=== PATIENT | female | born 1980 | race Caucasian/White ===

== ENCOUNTER 2021-09-16 09:01 | Outpatient (CLI) | payer OTHER, SELFPAY ==
--- NOTE | ~2021-09-16 | US_ITS ---
EXAMINATION: US venous doppler LE DATE: 09/16/2021 10:14 INDICATION: Bleeding from varicose veins of the left lower limb. Venous reflux. TECHNIQUE: Grayscale ultrasound images without and with compression and Doppler ultrasound images of the bilateral lower extremity veins were obtained. COMPARISON: None. FINDINGS: The visualized portions of right common femoral vein, profunda (deep) femoral vein, femoral vein, pop liteal vein, posterior tibial veins, peroneal veins, gastrocnemius vein and greater saphenous vein ou tflow are patent. Right standing venous mapping: reflux seconds duration; vein size. Greater saphenous origin: 0 seconds; 6.9 mm. Greater saphenous proximal thigh:- 0 seconds; 2.9 mm. Greater saphenous mid thigh:------ 1.0 seconds; 6.4 mm. There is a dilated subcutaneous varicose vein arising from the right greater saphenous vein at the di stal thigh which measures 8.1 mm diameter [id number] and 7.0 mm at the knee where there is 3.0 se conds of reflux and at least 3.5 seconds of reflux at the proximal calf. Lesser saphenous proximally:------ 0 seconds; 2.2 mm. Lesser saphenous distally: 2 seconds; 1.8 mm. The visualized portions of left common femoral vein, profunda femoral vein, femoral vein, popliteal v ein, posterior tibial veins, peroneal veins, gastrocnemius vein and greater saphenous vein outflow ar e patent. Left standing venous mapping: reflux seconds duration; vein size. Greater saphenous origin: 0 seconds; 8.3 mm. Greater saphenous proximal thigh:- 0 seconds; 6.0 mm Greater saphenous mid thigh:------ 0 seconds; 2.2 mm. Greater saphenous distal thigh:---- 0 seconds; 2.2 mm. Greater saphenous at knee:-------- 0 seconds; 1.3 mm. Greater saphenous below knee:--- >5 seconds; 2.2 mm. Lesser saphenous proximally:------ >5 seconds; 1.9 mm. Lesser saphenous distally: 0 seconds; 2.7 mm. IMPRESSION: 1. No deep venous thrombosis in either lower limb. 2. >5 second reflux [id number] in the left greater saphenous and lesser saphenous veins. Up to 3. 5 second reflux at a superficial varicose vein at the distal thigh and knee arising from the right gr eater saphenous vein. Reviewed, dictated and finalized at location A. IMPRESSION: 1. No deep venous thrombosis in either lower limb. 2. >5 second reflux [id number] in the left greater saphenous and lesser sap henous veins. Up to 3.5 second reflux at a superficial varicose vein at the dis mike thigh and knee arising from the right greater saphenous vein.
== END 2021-09-16 09:02 | disposition home or self-care (01) ==
PROVIDERS: PCP Nurse Practitioner Family
DX: I87.2 Venous insufficiency (chronic) (peripheral) (principal)
CPT/HCPCS: 93970

== ENCOUNTER 2023-01-13 01:11 | Emergency (ER) | payer OTHER, SELFPAY ==
--- NOTE | ~2023-01-13 | CT_ITS ---
CT of the Abdomen and Pelvis: Indication: Abdominal pain Technique: 2.5 mm axial scans were obtained through the abdomen and pelvis following intravenous adm inistration of 100 cc of Omnipaque 350. Dose reduction technique was used on this scan by utilizing a utomated exposure control and iterative reconstruction technique. The dose-length product (DLP) was 1 509.36 mGy-cm. Findings: Scans through the lung bases are unremarkable. The liver, spleen, pancreas, adrenals and kidneys are within normal limits. Gallbladder is partially distended with a gallstone the gallbladder neck, though no definite gallbladder wall thickening or pe richolecystic inflammatory change identified. No evidence of aortic aneurysm. No lymphadenopathy. No bowel obstruction or bowel wall thickening. There is no evidence to suggest acute appendicitis. Images through the pelvis were performed. Urinary bladder unremarkable. There are probable bilateral cystic adnexal masses, measuring 9 cm in diameter on the left, and 6.3 cm on the right. Probable cyst is small left hydrosalpinx. No ascites evident. Impression: Large bilateral ovarian cysts, measuring approximately 9 cm in diameter on the left, and 6.3 cm on th e right. Consider pelvic ultrasound to further assess for torsion and the nature of the cysts, as cli nically indicated. Gallstones are gallbladder neck with distended gallbladder but no gallbladder wall thickening or dinah cholecystic inflammatory change. If there is clinical concern for acute cholecystitis, then consider HIDA scan for further evaluation. Reviewed, dictated and finalized at [facility]. 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 Consider pelvic ultrasound to further assess for torsion and the nature of the cysts, as clinically indicated. Gallstones are gallbladder neck with distended gallbladder but no gallbladder w all thickening or pericholecystic inflammatory change. If there is clinical con cern for acute cholecystitis, then consider HIDA scan for further evaluation.
[2023-01-13 01:23] VITALS: BP 160/78; PULSE 89; RESP 20; TEMP 37.7; O2SAT 98
[2023-01-13 01:24] VITALS: BP 160/78; PULSE 89; RESP 20; TEMP 37.7; O2SAT 98
--- NOTE | 2023-01-13 01:32 | ED.ABDPAIN ---
HPI - Abdominal Pain General Chief Complaint: Abdominal Pain Stated Complaint: abdominal pain History of Present Illness HPI narrative: This is a 42-year-old female, with no significant past medical history, who presents to the emergency department complaining bilateral pelvic pain for the last 2 days. She describes the pain as sharp, rated 9/10 and equal on both sides. She states the pain radiates towards her genitalia. She denies abnormal vaginal discharge, though says she has had 2 episodes of vaginal bleeding consistent with menstrual cycles this month. She states direct pressure or sitting up aggravates the pain. She has no other complaints at this time. Related Data Allergies Allergy/AdvReac Type Severity Reaction Status Date / Time No Known Allergies Allergy Unverified 07/10/21 12:30 Review of Systems Review of Systems: CONSTITUTIONAL: Denies fever, chills, or sweats. CARDIOVASCULAR: Denies chest pain, palpitations, or edema. RESPIRATORY: Denies cough or dyspnea. GASTROINTESTINAL: Abdominal pain Denies nausea, vomiting, or diarrhea. GENITOURINARY: Denies dysuria or hematuria. SKIN: Denies rash or itching. MUSCULOSKELETAL: Denies back pain, joint pain, or myalgia. NEUROLOGIC: Denies headache, numbness, dizziness, or weakness. PSYCHIATRIC: Denies anxiety or depression. [facility] Surgical History Surgical History History of appendectomy History of Social History Social History Smoking status: Former smoker Alcohol intake: current Alcohol use details: social Substance use: never Substance use type: does not use Living arrangements: with family Additional living arrangements comments: Gender identity (if verbalized by the patient): Female Exam Narrative: GENERAL: Well-appearing, well-nourished, and in no acute distress. HEAD: Normocephalic, atraumatic. EYES: PERRLA and EOMI. CHEST: Clear to auscultation. No respiratory distress. No wheezes rales or rhonchi HEART: Regular rate and rhythm. No murmur heard. Normal peripheral pulses. ABDOMEN: Soft, tender palpation over the periumbilical and in the bilateral lower quadrants without rebound or guarding, nondistended, normal active bowel sounds. no CVA tenderness to palpation EXTREMITIES: Normal range of motion. No edema. SKIN: Warm, dry, no rash. NEURO: No focal deficits. Alert and oriented x3. PSYCH: Normal mood and affect. Course Course Emergency Course: 03:49 - CBC unremarkable. Chemistries demonstrate mild hypocalcemia with calcium of 8.3 but is otherwise unremarkable. UA shows changes consistent with urinary tract infection. STAT Rad interpretation of CT abdomen pelvis shows bilateral ovarian cysts measuring up to 9 x 6.9 cm on the right and 8.8 x 7.6 cm on left. Postoperative changes prior appendectomy. Cholelithiasis. Solid organs are unremarkable in appearance. No free air or intestinal obstruction. My review of the patient's CT also demonstrates what appears to be an inflammatory reaction in the skin of the patient's pannus just above the pubic symphysis. I suspect UTI or this inflammatory reaction as the possible cause of the patient's pain. In the presence of these findings, I have decreased suspicion for ovarian torsion at this time. On re-evaluation, the patient states she feels much improved. She was given an IV dose of antibiotics in the ED. I recommended the patient follow-up with a primary care doctor and an [facility]. Discussed return and emergency precautions including signs/symptoms of acute abdomen and intractable vomiting. The patient voiced understanding and is comfortable with the plan. All questions answered to her satisfaction. Vital Signs Vital signs: Vital Signs Temperature 99.8 F H 01/13/23 01:23 Pulse Rate 89 01/13/23 01:23 Respiratory Rate 20 01/13/23 01:23 Blood Pressure
[2023-01-13] MEDS: MORPHINE SULFATE (*CRX) 4 MG/ML INJ IV PUSH (01:50)
[2023-01-13 02:00] LABS: Basophils Absolute Auto 0.04 K/mm3 (0.00-0.10); Basophils Percent Auto 0.6 % (0.0-1.0); Eosinophils Absolute Auto 0.08 K/mm3 (0.02-0.50); Eosinophils Percent Auto 1.2 % (1.0-6.0); Hematocrit 36.9 % (35.0-49.0); Immature Granulocyte Absolute 0.08 K/mm3 (0.00-0.00); Immature Granulocyte Percent A 1.2 % (0.0-0.0); Lymphocytes Absolute Auto 1.29 K/mm3 (1.10-4.50); Lymphocytes Percent Auto 18.8 % (18.0-42.0); Mean Corpuscular HGB Conc 32.5 g/dL (32.0-36.0); Mean Corpuscular Volume 86.2 fL (78.0-102.0); Mean Platelet Volume 10.4 fl (9.2-11.8); Monocytes Absolute Auto 0.61 K/mm3 (0.10-0.90); Monocytes Percent Auto 8.9 % (2.0-11.0); Neutrophils Absolute Auto 4.8 K/mm3 (1.7-7.2); Neutrophils Percent Auto 69.3 % (50.0-70.0); Platelet Count Result 323 K/mm3 (150-420); Red Blood Count 4.28 M/mm3 (4.20-5.40); Red Cell Distribution Width 13.4 % (11.6-14.4); White Blood Count 6.9 K/mm3 (4.8-10.8)
[2023-01-13 02:05] LABS: Appearance Urine Clear (Clear); Bilirubin Urine Negative (Negative); Blood Urine 3+ (Negative); Color Urine Light Yellow (Yellow); Glucose Urine UA Negative (Negative); Ketones Urine Negative (Negative); Leukocyte Esterase Ur 2+ LEU/UL (Negative); Nitrate Urine Positive (Negative); Protein Urine 1+ (Negative); Specific Grav Ur 1.025 (1.010-1.020); pH Urine 6.5 (5.0-8.0)
[2023-01-13 02:10] LABS: Add Urine Microscopic? YES; Pregnancy On Board Control Positive; RBC Urine >75 /hpf (0-2); Urine Pregnancy Test Negative; WBC Urine 16-20 /hpf (0-3)
[2023-01-13 02:11] LABS: Bacteria Urine 3+ /hpf; Squamous Epithelial Cell Urine Many /hpf (Few)
[2023-01-13 02:14] LABS: Alanine Aminotransferase 29 U/L (14-59); Albumin Level 2.9 g/dL (3.4-5.0); Alkaline Phosphatase 75 U/L (46-116); Anion Gap 5 mmol/L (8-16); Aspartate Amino Transferase 16 U/L (15-37); Bilirubin,Total 0.4 mg/dL (0.00-1.00); Blood Urea Nitrogen 10 mg/dL (7-18); Calcium 8.3 mg/dL (8.5-10.1); Carbon Dioxide 30 mmol/L (21-32); Chloride 103 mmol/L (98-108); Estimated CRCL calculation 139 ml/min; Estimated Glomerular Filt Rate > 60; Glucose 113 mg/dL (70-99); Lipase 35 U/L (16-77); Osmolality Calculated 286 mOsm/kg (285-295); Potassium 3.9 mmol/L (3.5-5.1); Sodium 138 mmol/L (136-145); Total Protein 7.8 g/dL (6.4-8.2)
[2023-01-13 02:35] VITALS: BP 155/71; PULSE 88; RESP 18; O2SAT 98
[2023-01-13] MEDS: PROCHLORPERAZINE EDISYLATE 10 MG/2 ML VIAL IV PUSH (02:53)
[2023-01-13 03:52] VITALS: BP 126/80; PULSE 85; RESP 18; TEMP 37.2; O2SAT 97
--- NOTE | 2023-01-16 13:53 | PC.NURSE ---
Final urine culture report states, Escherichia coli, Patient discharged on cephalexin 500mg, 1 po q12h, per ERP no change needed culture is susceptible.
== END 2023-01-13 04:02 | disposition home or self-care (01) ==
PROVIDERS: Emergency Provider Preventive Medicine Aerospace Medicine
DX: N30.01 Acute cystitis with hematuria (principal); R10.30 Lower abdominal pain, unspecified; Z87.891 Personal history of nicotine dependence
CPT/HCPCS: 36415; 74177; 80053; 81001; 81025; 83690; 85025; 87077; 87086; 87088; 87186; 96365; 96375; 99284; J0696; J0780; J2270; Q9967

== ENCOUNTER 2023-01-29 08:58 | Outpatient (CLI) | payer OTHER, SELFPAY | END 2023-01-29 08:59 | disposition home or self-care (01) | LOC: ANHSURGERY 09:24 | PROVIDERS: PCP Family Medicine; Visit Provider Obstetrics & Gynecology | DX: Z01.818 Encounter for other preprocedural examination (principal); N83.209 Unspecified ovarian cyst, unspecified side | CPT/HCPCS: 36415; 86850; 86900; 86901 ==

== ENCOUNTER 2023-01-30 02:51 | Day surgery (SDC) | payer OTHER, SELFPAY ==
--- NOTE | 2023-01-27 16:32 | P.HP_ITS ---
H&P: HPI History of Present Illness Date/Time: 01/27/23 16:32 Chief Complaint: pelvic pain and ovarian cysts Narrative: the 42-year-old female 2 para 2 admitted for laparoscopy with pelvic pain and discomfort. She has had fertility issues and her pain has been uncomfortable. Risks and benefits of this procedure reviewed including not exclusive of , aspiration pneumonia, bleeding, transfusion, perforation injury to bowel, bladder, ureters, or other internal organs with need for laparotomy. She received the [employer] handout entitled laparoscopy. She had all questions answered. She asked to proceed should be noted that on ultrasound of the left ovary had a simple cyst measuring 8cm in diameter and the right with 5.5cm in diameter [facility] Surgical History Surgical History History of appendectomy History of Social History Social History Smoking status: Former smoker Alcohol intake: current Alcohol use details: social Substance use: never Substance use type: does not use Living arrangements: with family Additional living arrangements comments: Gender identity (if verbalized by the patient): Female Meds Home Medications and Allergies Home Medications Medication Instructions Recorded Confirmed Type cephalexin 500 mg capsule 500 mg PO Q12H 7 days #14 caps 01/13/23 Rx prochlorperazine maleate 10 mg 10 mg PO Q8H PRN nausea and 01/13/23 Rx tablet vomiting #15 tabs Allergies Allergy/AdvReac Type Severity Reaction Status Date / Time No Known Allergies Allergy Verified 01/21/23 07:52 Exam Const: General: cooperative, healthy appearing and comfortable Nutritional Appearance: obese Orientation/consciousness: oriented to person, oriented to place and oriented to time HENMT: Head: normal to inspection Resp: Effort & Inspection: normal respiratory effort Cardio: Rate: regular rate Rhythm: regular rhythm Heart sounds: S1 normal heart sound present and S2 normal heart sound present GI: Inspection: normal to inspection, Pannus present and obesity : External Female Exam: normal external appearance Speculum Exam - Vagina: normal appearance of the vagina Speculum Exam - Cervix: normal appearance of the cervix Bimanual exam- vagina & uterus: Uterine tenderness Bimanual Exam- Adnexa, other: tender Assessment and Plan Assessment and plan (1) Ovarian cyst: Code(s): N83.209 - Unspecified ovarian cyst, unspecified side Status: Acute Plan laparoscopic bilateral ovarian cystectomies with possible cystotomy
[2023-01-28 14:37] VITALS: BMI 61.1
--- NOTE | 2023-01-28 14:49 | PC.NURSE ---
Report to the Outpatient Waiting Room, entrance under the green pavilion located off [facility], at 1100 on 01/30/23. Planned Procedure Time: 1300. Time changes happen often and if your time is changed the preop area will call you the afternoon before. - You and your visitor will be asked to self-screen and do not enter if you have any COVID symptoms. - A mask is optional within the hospital at this time. Patients may have clear liquids (water, carbonated beverages, clear teas, apple juice) until 3 hours prior to surgery with a maximum of 20 ounces. - No food from midnight until time of surgery Take the following medications with a SIP of water the morning of surgery: n/a DO NOT STOP ANY OF YOUR OTHER PRESCRIPTION MEDICATIONS PRIOR TO SURGERY ?EXCEPT THE FOLLOWING Medications to discontinue per physician n/a Date to take last dose n/a Please no make-up, nail [place], hairspray, perfume, deodorant, or body powder the day of surgery. No jewelry (including any body piercings) or valuables the day of surgery, leave them at home. Please take a shower or bath the night before, or the morning of, surgery with an antibacterial soap. Wear comfortable, loose fitting clothing. - Jewelry must be removed prior to entering the operating room. Rings and piercings that are not removed may be cut off. - The hospital will not accept responsibility for valuables. - Please leave all valuables, including medications, at home the day of surgery. If you are going home after surgery, a licensed truck driver must drive you home. - NO public transportation without another adult if you receive anesthesia. - We recommend that an adult stay with you for 24 hours following discharge. - We also recommend that you do not drive, make important decision, drink alcoholic beverages, or take any drugs that were not prescribed by your health care provider for at least 24 hours after your discharge time. Follow any additional instructions given to you from your surgeon. If you or anyone in your household have experienced Covid symptoms in the past week, please notify your surgeon or the nurse liaison at the phone number below for possible testing. Telephone instructions given to patient and asked if any additional questions and then verbalized understanding. Patient advised to call surgeon office or pre surgery nurse liaison [phone] if any additional questions.
[2023-01-30] VITALS (11 sets, daily range): BP systolic 124–155; BP diastolic 72–98; PULSE 59–103; RESP 14–19; TEMP 36.1–36.7; O2SAT 98–100
--- NOTE | 2023-01-30 06:22 | WPDHPUPDATE1 ---
History and Physical Update Update Date/Time: 01/30/23 06:22 History and Physical has been reviewed, including an updated exam of the patient. There are NO changes in the patient's condition. Risks, benefits, and alternatives have been discussed and questions answered. Patient agrees to proceed with procedure.
[2023-01-30] MEDS: ACETAMINOPHEN 500 MG TABLET 1000 MG PO (11:37)
[2023-01-30] MEDS: KETOROLAC 15 MG/ML VIAL (*BKC) IV PUSH (11:38)
[2023-01-30] MEDS: LACTATED RINGERS 1,000 ML 30 ML IV CONT (11:40)
--- NOTE | 2023-01-30 11:52 | WPDANESEPPF ---
Anes - Initial Pre Proc Eval Procedure: Operation Date: 01/30/23 13:00 Proposed Procedures p Laparoscopic Bilateral Ovarian Cystectomy - Jasper Allen MD Date/Time: 01/30/23 11:52 Surgeon: Jasper Allen MD Pre Op Diagnosis: bilateral ovarian cyst, pelvic pain Patient Data Age: 42 Gender: F Height: 1.6 m Weight: 155.3 kg Allergies Allergy/AdvReac Type Severity Reaction Status Date / Time No Known Allergies Allergy Verified 01/30/23 11:18 Home Medications Medication Instructions Recorded Confirmed Type hydrocodone 5 mg-acetaminophen 325 1 tablet PO Q4H PRN pain #20 tabs 01/30/23 Rx mg tablet Patient hx anesthesia problems: none Family hx anesthesia problems: none Results Review: All pre-operative results and documents have been reviewed as part of the pre-operative evaluation. [facility] Surgical History Surgical History History of appendectomy History of Social History Social History Smoking packs per day: 1 Smoking cigarettes per day: 20.0 Years smoked: 10 Smoking pack-years: 10.00 Smoking status: Current every day smoker Tobacco type: cigarettes Second hand tobacco smoke exposure: Yes () Smoking end date: 01/28/14 Alcohol intake: current Alcohol use details: 1-2 drinks 1-2x/month Substance use: never Substance use type: does not use Living arrangements: with family Additional living arrangements comments: Gender identity (if verbalized by the patient): Female Spiritual care concerns: No Anes - Eval Final PreProcedure Day of Procedure 01/30/23 11:52 Patient weight: super morbidly obese Heart: regular rate and rhythm Lungs: decreased breath sounds Airway: Mallampati scale class II Neurological: alert and oriented Last oral intake: >/= 8 hours ASA classification: III Emergent: no Anesthetic plan: proceed Anesthesia type and monitoring: general ETT and standard monitoring Results Review: All pre-operative results and documents have been reviewed as part of the pre-operative evaluation. Informed Consent: The patient's anesthetic plan and its attendant risks and benefits were discussed with the patient/family/POA. Questions were solicited and answers provided to the satisfaction of the patient/family/POA.
--- NOTE | 2023-01-30 14:13 | W.PM.PROC2 ---
Procedure Note - Detailed Date of Procedure 01/30/23 Pre-op Diagnosis bilateral ovarian cyst, pelvic pain Post-op Diagnosis Same Procedure Performed Laparoscopic destruction of bilateral ovarian cysts with extensive lysis of adhesions Surgeon Jasper Allen MD Anesthesia General Indications this is a 42-year-old female with large ovarian cyst and severe pelvic pain Findings large bilateral ovarian cysts with marked amount of the adhesions normal-appearing uterus Description of Procedure patient was prepped draped in normal sterile fashion placed in the dorsal position. Under excellent general anesthesia speculum placed posterior. Anterior lip of the cervix grasped with single-tooth tenaculum Jackson's cannula inserted the cervix and attached to the single-tooth bladder drained of clear urine the weighted speculum was removed. Gloves were changed A supraumbilical incision made the Veress needle passed in the abdomen. Abdomen filled with CO2 gas 15mmmmmercury. The 5mm trocar advanced in the abdomen with the Optiview no injury seen. Patient placed in Trendelenburg and marked amount of adhesions were seen anteriorly from the omentum to the anterior abdominal a right lower quadrant incision made the 5mm trocar advanced under direct visualization assuring injury. A left lower quadrant incision made the 5 trocar advanced under direct visualization assuring injury. Using Endo Clover the omentum was sharply dissected brought off the anterior portion of the cervix to be see pelvis. Large cystic ovaries were noted. The right ovary was opened in linear fashion drained of serosanguineous fluid. The right tube was adherent dissected. The left ovary was enlarged as well and a linear incision made and drained of serosanguineous fluid. Eventually the cul-de-sac could be seen after sharp dissection was undertaken relieving the colon from the left adnexa. irrigation was undertaken until at this point it was felt dangerous to remove the cystic tissue which appeared assuring throughout the procedure and it was felt that it could not be completely removed secondary to the patient's large size and the risks associated with the possible need for open laparotomy. The lower site was removed. The gas removed from the abdomen. The upper sites removed. The incisions closed with 4 Monocryl and glue. The instruments removed from vagina the patient went to recovery in satisfactory condition. All sponge, needle, instrument counts were correct. Immediate complications Estimated Blood Loss 5 Drains No Packing No Pathology None sent Complications No immediate complications Condition Stable Disposition PACU
[2023-01-30] MEDS: fentaNYL CITRATE INJ (*CRX) 100 MCG/2 ML VIAL 25 MCG IV PUSH ×2 (15:48→15:54)
[2023-01-30] MEDS: diphenhydrAMINE HCl INJ 50 MG/ML VIAL 25 MG IV PUSH (16:06)
[2023-01-30] MEDS: oxyCODONE HCL (*CRX) 5 MG TAB IR PO (16:29)
== END 2023-01-30 17:05 | disposition home or self-care (01) ==
PROVIDERS: PCP Family Medicine; Visit Provider Obstetrics & Gynecology
PROC: (CPT 49320; principal; 2023-01-30 13:00)
DX: R10.2 Pelvic and perineal pain (principal); N83.202 Unspecified ovarian cyst, left side; N83.201 Unspecified ovarian cyst, right side; Z87.891 Personal history of nicotine dependence
CPT/HCPCS: 58662; 36415; 86850; 86900; 86901; A9270; J0330; J1100; J1200; J1885; J2250; J2405; J2704; J3010; J7030; J7120

== ENCOUNTER 2023-03-02 13:27 | Outpatient (CLI) | payer OTHER, SELFPAY ==
--- NOTE | ~2023-03-02 | MM_ITS ---
EXAMINATION: MM screening bradly BI w kd HISTORY: Screening TECHNIQUE: Craniocaudal and mediolateral oblique 3-D tomosynthesis images were obtained and synthetic 2-D images were generated. CAD analysis was submitted and interpreted. COMPARISON: No prior mammogram is available for comparison at this institution. BREAST PARENCHYMAL COMPOSITION: Breast composition is almost entirely fatty FINDINGS: There is a mass in the upper outer quadrant of the right breast, middle third. There is no mammographic evidence for malignancy in the left breast. IMPRESSION: 1. Mass upper outer quadrant of the right breast, middle third. 2. Additional mammographic views and possible breast ultrasound are recommended. BI-RADS Category 0: Incomplete: Needs additional imaging evaluation. Reviewed, dictated and finalized at location A. CAD IMPRESSION: 1. Mass upper outer quadrant of the right breast, middle third. 2. Additional mammographic views and possible breast ultrasound are recommended . BI-RADS Category 0: Incomplete: Needs additional imaging evaluation.
== END 2023-03-02 13:28 | disposition home or self-care (01) ==
PROVIDERS: PCP Family Medicine; Visit Provider Obstetrics & Gynecology
DX: Z12.31 Encounter for screening mammogram for malignant neoplasm of breast (principal); R92.8 Other abnormal and inconclusive findings on diagnostic imaging of breast
CPT/HCPCS: 77063; 77067

== ENCOUNTER 2023-03-06 08:50 | Outpatient (CLI) | payer OTHER, SELFPAY ==
--- NOTE | ~2023-03-06 | MMUS_ITS ---
EXAMINATION: MM diagnostic bradly RT w kd, US breast RT limited HISTORY: Right breast mass seen on screening mammogram. TECHNIQUE: Additional 3-D tomosynthesis images of the right breast were performed and synthetic 2-D i mages were generated. CAD analysis was submitted and interpreted. High resolution Limited right breas t ultrasound was performed. COMPARISON: No prior studies for comparison. BREAST PARENCHYMAL COMPOSITION: Breast composed of scattered areas of fibroglandular density FINDINGS: MAMMOGRAPHIC FINDINGS: There is a mass in the upper outer quadrant of the right breast, middle third. There are no suspiciou s calcifications or architectural distortion. ULTRASOUND: Limited right breast ultrasound: At 10:00, 11 cm from the nipple there is an oval heterogeneous hypoe choic 9 mm mass without posterior features or internal vascularity which corresponds to the mammograp hic finding. IMPRESSION: 1. Complex 9 mm right breast mass at 10:00, 11 cm from the nipple. 2. Ultrasound-guided right breast biopsy recommended. BI-RADS CATEGORY 4-SUSPICIOUS ABNORMALITY RECOMMENDATION: Ultrasound-guided right breast biopsy recommended. Reviewed, dictated and finalized at location A. 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 Complex 9 mm right breast mass at 10:00, 11 cm from the nipple. 2. Ultrasound-guided right breast biopsy recommended. BI-RADS CATEGORY 4-SUSPICIOUS ABNORMALITY RECOMMENDATION: Ultrasound-guided right breast biopsy recommended.
== END 2023-03-06 08:51 | disposition home or self-care (01) ==
PROVIDERS: PCP Family Medicine; Visit Provider Obstetrics & Gynecology
DX: R92.8 Other abnormal and inconclusive findings on diagnostic imaging of breast (principal); N63.10 Unspecified lump in the right breast, unspecified quadrant
CPT/HCPCS: 76642; 77061; 77065; G0279

== ENCOUNTER 2023-04-01 09:04 | Outpatient (CLI) | payer OTHER, SELFPAY ==
--- NOTE | ~2023-04-01 | US_ITS ---
EXAMINATION: US breast RT limited HISTORY: Patient presents for ultrasound-guided biopsy of a right breast mass at the 10:00 location. TECHNIQUE: Limited right breast ultrasound was performed. FINDINGS: With real-time scanning, a 7 mm x 5 mm oval, circumscribed, parallel, hypoechoic mass is se en at the 10:00 location, 11 cm from the nipple. This appears to have a central echogenic component c omment suggestive of a lymph node. This was discussed with the patient and a course of six-month foll ow-up was agreed upon. IMPRESSION: Probably benign right breast mass. Follow-up right diagnostic mammogram and right breast ultrasound i n six months are recommended. BI-RADS category 3, probably benign findings. Reviewed, dictated and finalized at location A. ID GEAR TESTER IMPRESSION: Probably benign right breast mass. Follow-up right diagnostic mammogram and rig ht breast ultrasound in six months are recommended. BI-RADS category 3, probably benign findings.
== END 2023-04-01 09:05 | disposition home or self-care (01) ==
PROVIDERS: PCP Family Medicine; Visit Provider Surgery
DX: N63.10 Unspecified lump in the right breast, unspecified quadrant (principal); R92.8 Other abnormal and inconclusive findings on diagnostic imaging of breast
CPT/HCPCS: 76642

== ENCOUNTER 2023-09-15 10:33 | Outpatient (CLI) | payer OTHER, SELFPAY ==
[2023-09-15 11:28] LABS: Basophils Percent Auto 0.6 % (0.2-1.2); Eosinophils Absolute Auto 0.1 K/mm3 (0-0.3); Eosinophils Percent Auto 1.6 % (0-4.4); Hematocrit 37.4 % (37.0-47.0); Hemoglobin 12.4 g/dL (12.0-15.0); Immature Granulocyte Absolute 0.04 K/mm3 (0.00-0.031); Immature Granulocyte Percent A 0.6 % (0-0.5); Lymphocytes Absolute Auto 1.71 K/mm3 (0.9-3.2); Lymphocytes Percent Auto 24.2 % (18.3-44.2); Mean Corpuscular HGB Conc 33.2 g/dl (32-36); Mean Corpuscular Hemoglobin 28.8 pg (26-34); Mean Corpuscular Volume 86.8 fl (80-100); Mean Platelet Volume 10.9 fl (7.4-10.4); Monocytes Absolute Auto 0.5 K/mm3 (0.1-0.6); Monocytes Percent Auto 7.3 % (2.6-8.5); Neutrophils Absolute Auto 4.7 K/mm3 (1.3-6.7); Neutrophils Percent Auto 65.7 % (45.5-73.1); Platelet Count Result 324 k/mm3 (150-375); Red Blood Count 4.31 M/mm3 (4.2-5.4); Red Cell Distribution Width 13.7 % (11.5-14.5); White Blood Count 7.1 K/mm3 (4.5-10.0)
== END 2023-09-15 10:34 | disposition home or self-care (01) ==
LOC: ANHSURGERY 10:39
PROVIDERS: PCP Family Medicine; Visit Provider Obstetrics & Gynecology
DX: Z01.818 Encounter for other preprocedural examination (principal); N92.6 Irregular menstruation, unspecified; N83.209 Unspecified ovarian cyst, unspecified side
CPT/HCPCS: 36415; 85025; 86850; 86900; 86901

== ENCOUNTER 2023-09-18 00:14 | Day surgery (SDC) | payer OTHER, SELFPAY ==
[2023-09-14 13:02] VITALS: BMI 58.6
--- NOTE | 2023-09-14 13:09 | PC.NURSE ---
Report to the Outpatient Waiting Room, entrance under the green pavilion located off [facility], at time _0930_ on date _[id number]_. Planned Procedure Time: _1130_. Time changes happen often and if your time is changed the preop area will call you the afternoon before. - You and your visitor will be asked to self-screen and do not enter if you have any COVID symptoms. - A mask is optional within the hospital at this time. Patients may have clear liquids (water, carbonated beverages, clear teas, apple juice) until 3 hours prior to surgery with a maximum of 20 ounces. - No food from midnight until time of surgery Take the following medications with a SIP of water the morning of surgery: ___None DO NOT STOP ANY OF YOUR OTHER PRESCRIPTION MEDICATIONS PRIOR TO SURGERY ?EXCEPT THE FOLLOWING Medications to discontinue per physician None Date to take last dose Please no make-up, nail ethiopian, hairspray, perfume, deodorant, or body powder the day of surgery. No jewelry (including any body piercings) or valuables the day of surgery, leave them at home. Please take a shower or bath the night before, or the morning of, surgery with an antibacterial soap. Wear comfortable, loose fitting clothing. - Jewelry must be removed prior to entering the operating room. Rings and piercings that are not removed may be cut off. - The hospital will not accept responsibility for valuables. - Please leave all valuables, including medications, at home the day of surgery. If you are going home after surgery, a licensed cdl b driver must drive you home. - NO public transportation without another adult if you receive anesthesia. - We recommend that an adult stay with you for 24 hours following discharge. - We also recommend that you do not drive, make important decision, drink alcoholic beverages, or take any drugs that were not prescribed by your health care provider for at least 24 hours after your discharge time. Follow any additional instructions given to you from your surgeon. If you or anyone in your household have experienced Covid symptoms in the past week, please notify your surgeon or the nurse liaison at the phone number below for possible testing. Telephone instructions given to __Randi___and asked if any additional questions and then verbalized understanding. Patient advised to call surgeon office or pre surgery nurse liaison [phone] if any additional questions.
--- NOTE | 2023-09-16 06:43 | PM.IMHP ---
H&P: HPI History of Present Illness Date/Time: 09/16/23 06:43 Chief Complaint: PELVIC PAIN AND EXCESSIVE HEAVY BLEEDING Narrative: This is a 43-year-old female 2 para 2 admitted for robotic total vaginal hysterectomy bilateral salpingectomy with bilateral oophorectomy. She has bilateral ovarian cyst and enlarged uterus. She bleeds heavily and asked to have complete removal of her pelvic organs. She is young at 42 understands removal of the ovaries have physiologic and psychologic changes. She was definitive in her desire for removal of both despite consultation. Risks and benefits reviewed including but not exclusive of , aspiration pneumonia, bleeding, transfusion, perforation injury to bowel, bladder, ureters, or other internal organs with the need for open laparotomy. She received the [employer] handout entitled hysterectomy as well as de Christa handout. She had all questions answered. She asked to proceed PMFSH Surgical History Surgical History History of appendectomy History of Social History Social History Smoking packs per day: 1 Smoking cigarettes per day: 20.0 Years smoked: 15 Smoking pack-years: 15.00 Smoking status: Former smoker Tobacco type: cigarettes Second hand tobacco smoke exposure: Yes () Smoking end date: 12/16/13 Alcohol intake: current Alcohol use details: 1-2 drinks 1-2x/month Substance use: never Substance use type: does not use Do You Feel Safe in your Home?: Yes Lack of Transportation: No Lack of Food: Never True Current Housing: I Have Housing Concerned About Future Housing: No Difficulty Paying Gas/Electric Bills: No Difficulty Paying for Meds: No Currently Unemployed: No Education: High School Diploma/GED Difficulty w/ Childcare or Family Care: No Living arrangements: with family Additional living arrangements comments: Gender identity (if verbalized by the patient): Female Spiritual care concerns: No Meds Home Medications and Allergies Home Medications Medication Instructions Recorded Confirmed Type No Home Medications 09/14/23 09/14/23 History Allergies Allergy/AdvReac Type Severity Reaction Status Date / Time ondansetron [From Zofran] Allergy Severe Rash, Verified 09/14/23 13:01 SHORTNESS OF BREATH. Exam Const: General: cooperative and comfortable Nutritional Appearance: obese Orientation/consciousness: oriented to person, oriented to place and oriented to time Resp: Effort & Inspection: normal respiratory effort Cardio: Rate: regular rate Rhythm: regular rhythm Heart sounds: S1 normal heart sound present and S2 normal heart sound present GI: Inspection: normal to inspection and obesity GI Palp: Yes abdominal tenderness : External Female Exam: normal external appearance Speculum Exam - Vagina: normal appearance of the vagina Speculum Exam - Cervix: normal appearance of the cervix Bimanual exam- vagina & uterus: enlarged and Uterine tenderness Bimanual Exam- Adnexa, other: tender bilaterally Assessment and Plan Assessment and plan (1) Pelvic pain: Code(s): R10.2 - Pelvic and perineal pain Status: Acute (2) Enlarged uterus: Code(s): N85.2 - Hypertrophy of uterus Status: Acute (3) Ovarian cyst: Code(s): N83.209 - Unspecified ovarian cyst, unspecified side Status: Acute (4) Obesity, morbid, BMI 50 or higher: Code(s): E66.01 - Morbid (severe) obesity due to excess calories Status: Acute Assessment and Plan: Proceed with robotic total vaginal hysterectomy and bilateral salpingo-oophorectomy
[2023-09-18] VITALS (12 sets, daily range): BP systolic 148–168; BP diastolic 76–96; PULSE 73–96; RESP 15–20; TEMP 36.2–36.9; O2SAT 97–100
--- NOTE | 2023-09-18 05:21 | WPDHPUPDATE1 ---
History and Physical Update Update Date/Time: 09/18/23 05:21 History and Physical has been reviewed, including an updated exam of the patient. There are NO changes in the patient's condition. Risks, benefits, and alternatives have been discussed and questions answered. Patient agrees to proceed with procedure.
[2023-09-18] MEDS: ACETAMINOPHEN 500 MG TABLET 1000 MG PO (09:56)
[2023-09-18] MEDS: KETOROLAC 15 MG/ML VIAL (*BKC) IV PUSH (09:56)
[2023-09-18] MEDS: LACTATED RINGERS 1,000 ML 30 ML IV CONT ×2 (10:00→14:48)
[2023-09-18 10:09] LABS: BEDSIDEPREGUCG Negative
[2023-09-18] MEDS: SCOPOLAMINE 1 MG PATCH 1 PATCH TRANSDERM (10:13)
--- NOTE | 2023-09-18 10:14 | WPDANESEPPF ---
Anes - Initial Pre Proc Eval Procedure: Operation Date: 09/18/23 11:30 Proposed Procedures p Robotic Assisted Total Vaginal Hysterectomy with Bilateral Salpingo-oophorectomy - Jasper Allen MD Date/Time: 09/18/23 10:14 Surgeon: Jasper Allen MD Pre Op Diagnosis: Severe Pelvic Pain, Irg Bleeding Patient Data Age: 43 Gender: F Height: 1.6 m Weight: 155 kg Last Vital Signs Temp 36.6 C 09/18/23 09:38 Pulse 87 09/18/23 09:38 Resp 18 09/18/23 09:38 BP 148/96 H 09/18/23 09:38 Pulse Ox 100 09/18/23 09:38 O2 Del Method Room Air 09/18/23 09:38 Allergies Allergy/AdvReac Type Severity Reaction Status Date / Time ondansetron [From Zofran] Allergy Severe Rash, Verified 09/18/23 10:06 SHORTNESS OF BREATH. Home Medications Medication Instructions Recorded Confirmed Type hydrocodone 5 mg-acetaminophen 325 1 tablet PO Q4H PRN pain #30 tabs 09/18/23 Rx mg tablet Laboratory Tests 09/18/23 10:06 POC Urine HCG, Qual Negative POC Ur Preg QC Yes Patient hx anesthesia problems: none Family hx anesthesia problems: none Results Review: All pre-operative results and documents have been reviewed as part of the pre-operative evaluation. [facility] Past Medical History Medical History Morbid obesity Surgical History Surgical History History of appendectomy History of Social History Social History Smoking packs per day: 1 Smoking cigarettes per day: 20.0 Years smoked: 15 Smoking pack-years: 15.00 Smoking status: Former smoker Tobacco type: cigarettes Second hand tobacco smoke exposure: Yes () Smoking end date: 12/16/13 Alcohol intake: current Alcohol use details: 1-2 drinks 1-2x/month Substance use: never Substance use type: does not use Do You Feel Safe in your Home?: Yes Lack of Transportation: No Lack of Food: Never True Current Housing: I Have Housing Concerned About Future Housing: No Difficulty Paying Gas/Electric Bills: No Difficulty Paying for Meds: No Currently Unemployed: No Education: High School Diploma/GED Difficulty w/ Childcare or Family Care: No Living arrangements: with family Additional living arrangements comments: Gender identity (if verbalized by the patient): Female Spiritual care concerns: No Anes - Eval Final PreProcedure Day of Procedure 09/18/23 10:14 Patient weight: morbidly obese Heart: regular rate and rhythm Lungs: clear to auscultation Airway: Mallampati scale class II Neurological: alert and oriented Last oral intake: >/= 8 hours ASA classification: III Emergent: no Anesthetic plan: proceed Anesthesia type and monitoring: general ETT and standard monitoring Results Review: All pre-operative results and documents have been reviewed as part of the pre-operative evaluation. Informed Consent: The patient's anesthetic plan and its attendant risks and benefits were discussed with the patient/family/POA. Questions were solicited and answers provided to the satisfaction of the patient/family/POA.
[2023-09-18] MEDS: ceFAZolin 3 GM/D5W 100 ML 100 ML IVPB (11:09)
--- NOTE | 2023-09-18 14:12 | W.PM.PROC2 ---
Procedure Note - Detailed Date of Procedure 09/18/23 Pre-op Diagnosis Severe Pelvic Pain, Irg Bleeding Post-op Diagnosis Other (Severe pelvic pain/ irregular bleeding/ bilateral ovarian cysts. Extensive adhesions) Procedure Performed robotic total vaginal hysterectomy and bilateral salpingo-oophorectomy with extensive lysis of adhesions Surgeon Jasper Allen MD Anesthesia General Indications 43-year-old female with utero ovarian cyst as well as excessive heavy bleeding Findings huge bilateral ovarian cyst benign in nature and appeared possibly to the endometriomas. Adhesions throughout the pelvis. The enlarged uterus. Description of Procedure Patient was prepped and draped in the normal sterile fashion placed in dorsal lithotomy position. Under excellent general trach anesthesia weighted speculum placed in the posterior fornix vagina. Anterior lip of cervix grasped with single-tooth neck tenaculum. The uterus sounded to 10cm. Serial dilatation with fragmented dilators performed followed by passage of the 8 KALYANI and the 3. Cold cup. Next the 16 Thai catheter was placed in bladder and bladder drained of clear urine. Weighted speculum was gloves were changed. Supraumbilical incision made the Veress needle passed in the abdomen. Abdomen filled with CO2 gas 15 was mercury. The 8mm trocar advanced in the abdomen. Downside visualized no seen. Patient placed in Trendelenburg left lateral quadrant incisions made. 8Mm trocar advanced visualization. Right upper quadrant incision made 8mm advanced visualization assuring. Multiple adhesions were seen and these were sharply dissected until visualization the uterus could be seen. The robot was docked. Attention was turned to the console. Ovarian cysts were large and tangled throughout. Were then 900cc was withdrawn from the left ovary complex and more 400 from the right. The Saphris size of the ovaries visualization. The ovary was markedly adherent on the left colon sharp dissection was used to tease this was sharply dissected away from the colon. This was repeated on opposite side in the same minute face-fashion. The round ligament right was grasped, burned, cut and anterior bladder flap was formed by sharply dissecting the peritoneum reflecting this caudally away the cervix uterus the opposite round was clamped burned, cut. The infundibulopelvic structure was quite difficult to discern both sides the left and followed resecting ovary from the left lateral sidewall and was cleared this was clamped burned, previous this was performed similar fashion on right infundibulopelvic structure clamped burned cut brought to the level previously cut round. Cardinal broad ligaments on was skeletonized clamping burning cutting and bringing this down to vessels these were large tortuous and numerous nature individually clamped. A similar fashion around the cardinal broad ligaments were serially skeletonized clamping burning cutting until the uterine vessels could be seen right these were markedly enlarged and multifocal. Blanching the uterus was noted. The uterus ovaries tubes removed through the vagina. The vagina then closed with continuous running V lock from lateral edge to lateral edge back to the midline. Irrigation undertaken until clear and the surface areas uterus treated with [place] term the robot was undocked. The gas removed the abdomen. The trocars removed and the incisions closed with 4 the patient was awakened went to come in satisfactory condition. All sponge, needle, instrument counts were correct. There were no immediate complications noted Estimated Blood Loss 450 Drains No Packing No Pathology Yes Complications No immediate complications Condition Stable Disposition PACU
--- NOTE | 2023-09-18 14:19 | PM.DS ---
DS: Admitting Diagnosis Discharge Date 09/19/2023 Admitting Diagnosis pelvic pain and bilateral ovarian cysts DS: Discharge Diagnosis Discharge Diagnosis (1) Enlarged uterus: Code(s): N85.2 - Hypertrophy of uterus Status: Acute (2) Pelvic pain: Code(s): R10.2 - Pelvic and perineal pain Status: Acute DS: Summary Hospital Course Reason for hospitalization: patient was admitted for robotic hysterectomy bilateral salpingo-oophorectomy Hospital Course: patient's hospital course was difficult during the procedure and she extensive lysis of adhesions. She remained afebrile. She was up, voiding without difficulty, eating regular diet, ambulating, generally without complaints. Time Spent with Patient Time attestation: Total time spent providing and/or coordinating discharge services: Exam Const: General: cooperative, healthy appearing and comfortable Nutritional Appearance: obese Chest: Chest palpation & inspection: normal inspection of the chest Resp: Effort & Inspection: normal respiratory effort Cardio: Rate: regular rate Rhythm: regular rhythm Heart sounds: S1 normal heart sound present and S2 normal heart sound present GI: Inspection: normal to inspection and incision ( To clean drained) DS: Data Data Completed and Pending Pending studies at discharge: Pending at discharge 09/18/23 14:07 Surgical [PTH] Routine Labs on day of discharge: Labs from last 24 hours 09/18/23 10:06 POC Urine HCG, Qual Negative POC Ur Preg QC Yes Discharge Plan Discharge Patient Disposition: Home, Self-Care Stand Alone Forms: General Discharge Instructions Follow-up/Referrals: Jasper Nieto MD [Physician] - Discharge Medications: New hydrocodone-acetaminophen 5-325 mg tablet 1 tablet PO Q4H PRN (Reason: pain) Qty: 30 0RF estradiol 2 mg tablet 2 mg PO DAILY 21 Days Qty: 21 0RF Rx Instructions: off 1 week; repeat cycle
[2023-09-18] MEDS: ONDANSETRON INJ 4 MG/2 ML VIAL IV PUSH (14:51)
[2023-09-18] MEDS: diphenhydrAMINE HCl INJ 50 MG/ML VIAL 25 MG IV PUSH (15:02)
[2023-09-18] MEDS: PROMETHAZINE HCL 25 MG/ML AMPUL 12.5 MG IV PUSH ×2 (15:31→19:37)
--- NOTE | 2023-09-18 17:00 | PC.NURSE ---
Admission from OR 1616 Report received from 1600
--- NOTE | 2023-09-18 17:10 | PC.NURSE ---
RN monitor vitals RN wasn't able to give pt her meds that were scheduled at 1700 due to being so drowsy and sleepy. Pt was too tired to open take the medication at this time.
[2023-09-18] MEDS: DEXTROSE 5%/LACTATED RINGERS 1,000 ML 125 ML IV CONT (18:12)
[2023-09-18] MEDS: DOCUSATE SODIUM 100 MG CAPSULE PO (19:35)
[2023-09-18] MEDS: SIMETHICONE 80 MG TAB.CHEW PO (19:36)
[2023-09-18] MEDS: HYDROcodone/acetaminophen (*CRX) 5-325 MG TABLET 1 TAB PO (19:36)
[2023-09-19] VITALS: BP 130/70; PULSE 95; RESP 18; TEMP 36.6; O2SAT 98
[2023-09-19] MEDS: KETOROLAC 30 MG/ML VIAL (*BKC) IV PUSH (00:24)
[2023-09-19] MEDS: DEXTROSE 5%/LACTATED RINGERS 1,000 ML 125 ML IV CONT (04:59)
[2023-09-19 05:28] LABS: Basophils Percent Auto 0.2 % (0.2-1.2); Hematocrit 31.8 % (37.0-47.0); Hemoglobin 10.3 g/dL (12.0-15.0); Immature Granulocyte Absolute 0.04 K/mm3 (0.00-0.031); Immature Granulocyte Percent A 0.4 % (0-0.5); Lymphocytes Absolute Auto 1.21 K/mm3 (0.9-3.2); Lymphocytes Percent Auto 10.8 % (18.3-44.2); Mean Corpuscular HGB Conc 32.4 g/dl (32-36); Mean Corpuscular Hemoglobin 28.1 pg (26-34); Mean Corpuscular Volume 86.6 fl (80-100); Mean Platelet Volume 10.9 fl (7.4-10.4); Monocytes Absolute Auto 0.8 K/mm3 (0.1-0.6); Monocytes Percent Auto 7.3 % (2.6-8.5); Neutrophils Absolute Auto 9.1 K/mm3 (1.3-6.7); Neutrophils Percent Auto 81.3 % (45.5-73.1); Platelet Count Result 306 k/mm3 (150-375); Red Blood Count 3.67 M/mm3 (4.2-5.4); Red Cell Distribution Width 13.9 % (11.5-14.5); White Blood Count 11.2 K/mm3 (4.5-10.0)
[2023-09-19 05:51] VITALS: BP 135/69; PULSE 71; RESP 20; TEMP 36.3; O2SAT 100
--- NOTE | 2023-09-19 07:29 | PM.GYNPNOP ---
COMPOSITION TEACHER - A/P Postoperative Procedures: Procedures Operation Date: 09/18/23 11:30 Actual Procedure Side Surgeon p Robotic Assisted Total Vaginal Hysterectomy with Bilateral Salpingo-oophorectomy, extensive lysis of adhesions Bilateral Jasper Allen MD Postoperative day: 1 Postoperative status: doing well Postoperative plan: routine post-op care, see orders, ambulate, advance diet, voiding trials and discharge Time Spent With Patient Time: Total time spent is greater than 50% in coordination of care (as documented) at patient's floor/unit and/or counseling patient: Time with patient: less than 15 minutes COMPOSITION TEACHER- PN:Subj Post-Op Subjective Date/time seen: 09/19/23 07:29 Subjective: patient has no complaints, patient desires discharge, pain is well controlled and patient is tolerating oral intake Exam Const: General: cooperative, healthy appearing and comfortable Orientation/consciousness: oriented to person, oriented to place and oriented to time HENMT: Head: normal to inspection Resp: Effort & Inspection: normal respiratory effort Cardio: Rate: regular rate Rhythm: regular rhythm Heart sounds: S1 normal heart sound present and S2 normal heart sound present GI: Inspection: normal to inspection and incision (cdi) COMPOSITION TEACHER - PN: Obj Data Vital Signs Vital Signs: Vital Signs - 24 hr 09/18/23 09:38 09/18/23 14:43 09/18/23 15:00 Temperature 97.8 F 97.2 F L Pulse Rate 87 96 79 Respiratory Rate 18 15 16 Blood Pressure 148/96 H 168/84 H 161/92 H Pulse Oximetry 100 100 100 Oxygen Delivery Room Air Simple Face Mask Room Air Oxygen Flow Rate 8 09/18/23 15:15 09/18/23 15:30 09/18/23 15:45 Temperature Pulse Rate 78 85 73 Respiratory Rate 18 18 20 Blood Pressure 168/93 H 155/79 H 153/91 H Pulse Oximetry 100 100 99 Oxygen Delivery Room Air Room Air Room Air Oxygen Flow Rate 09/18/23 16:00 09/18/23 16:15 09/18/23 17:22 Temperature 97.9 F Pulse Rate 78 78 Respiratory Rate 18 18 Blood Pressure 155/94 H 158/80 H Pulse Oximetry 98 100 Oxygen Delivery Room Air Room Air Oxygen Flow Rate 09/18/23 16:30 09/18/23 17:00 09/18/23 18:00 Temperature 97.5 F L 98.0 F 97.7 F Pulse Rate 82 80 82 Respiratory Rate 18 17 17 Blood Pressure 160/78 H 156/76 H 157/76 H Pulse Oximetry 100 99 100 Oxygen Delivery Oxygen Flow Rate 09/18/23 20:42 09/18/23 23:15 09/19/23 00:00 Temperature 98.4 F 97.9 F Pulse Rate 74 95 Respiratory Rate 20 18 Blood Pressure 154/79 H 130/70 Pulse Oximetry 97 98 Oxygen Delivery Room Air Oxygen Flow Rate 09/19/23 05:51 Temperature 97.3 F L Pulse Rate 71 Respiratory Rate 20 Blood Pressure 135/69 Pulse Oximetry 100 Oxygen Delivery Oxygen Flow Rate Intake/Output Intake/Output: Intake & Output 09/16/23 09/17/23 09/18/23 09/19/23 23:59 23:59 23:59 23:59 Intake Total 700 1720 Output Total 280 1600 Balance 420 120 Meds/Results Medications: Active Medications Generic Name Dose Route Start Last Admin Trade Name Freq PRN Reason Stop Dose Admin Hydrocodone Bitart/Acetaminophen 1 tab 09/18/23 16:06 09/18/23 19:36 Hydrocodone/Acetaminophen (*Crx) 5-325 Mg Tablet PO 1 tab Q3H PRN Administration Pain Rated 5 or Less Hydrocodone Bitart/Acetaminophen 1 tab 09/18/23 16:06 Hydrocodone/Acetaminophen (*Crx) 10-325 Mg Tablet PO Q3H PRN Pain Rated 6 or Greater Docusate Sodium 100 mg 09/18/23 17:00 09/18/23 19:35 Docusate Sodium 100 Mg Capsule PO 100 mg BID ANIKA Administration Enoxaparin Sodium 40 mg 09/19/23 09:00 Enoxaparin 40 Mg/0.4 Ml Syringe SUB-Q DAILY ANIKA Dextrose/Lactated Ringer's 1,000 mls @ 125 mls/hr 09/18/23 16:06 09/19/23 04:59 Dextrose 5%/Lactated Ringers IV CONT 125 mls/hr .Q8H ANIKA Administration Ibuprofen 600 mg 09/18/23 16:06 Ibuprofen 600 Mg Tablet PO Q6H PRN Cramping Ketorolac Tromethamine 30 mg 09/18/23 16:06 09/19/23 00:24 Ket
[2023-09-19 08:00] VITALS: BP 129/64; PULSE 80; RESP 16; TEMP 36.1; O2SAT 100
[2023-09-19] MEDS: HYDROcodone/acetaminophen (*CRX) 10-325 MG TABLET 1 TAB PO (08:43)
[2023-09-19] MEDS: ENOXAPARIN 40 MG/0.4 ML SYRINGE SUB-Q (08:43)
[2023-09-19] MEDS: SIMETHICONE 80 MG TAB.CHEW PO (08:43)
[2023-09-19] MEDS: DOCUSATE SODIUM 100 MG CAPSULE PO (08:43)
== END 2023-09-19 11:28 | disposition home or self-care (01) ==
LOC: ANHSURGERY 09:20 → ANH3MEDSUR 16:07
PROVIDERS: PCP Family Medicine; Visit Provider Obstetrics & Gynecology
PROC: (CPT 58552; principal; 2023-09-18 11:30)
DX: N80.123 Deep endometriosis of bilateral ovaries (principal); N73.6 Female pelvic peritoneal adhesions (postinfective); N80.03 Adenomyosis of the uterus; N80.203 Endometriosis of bilateral fallopian tubes, unspecified depth; N93.9 Abnormal uterine and vaginal bleeding, unspecified; Z87.891 Personal history of nicotine dependence; E66.01 Morbid (severe) obesity due to excess calories; Z68.44 Body mass index [BMI] 60.0-69.9, adult
CPT/HCPCS: 58552; S2900; 36415; 85025; 86850; 86900; 86901; 88307; A9270; J0690; J1100; J1200; J1650; J1885; J2250; J2405; J2550; J2704; J3010; J7030; J7120; J7121

== ENCOUNTER 2023-10-01 08:50 | Outpatient (CLI) | payer OTHER, SELFPAY ==
--- NOTE | ~2023-10-01 | US_ITS ---
US breast RT limited INDICATION: Follow-up right breast mass TECHNIQUE: Dedicated Limited right breast ultrasound COMPARISON: 04/01/2023 BREAST DENSITY: [ Not dense: There are scattered areas of fibroglandular density. ] FINDINGS: The right breast is/are composed of normal heterogeneous echotexture without focal solid or cystic mass. IMPRESSION: 1: Normal limited right breast ultrasound. Recommend correlation with diagnostic mammogram. BI-RADS CATEGORY 0 - INCOMPLETE STUDY, NEED ADDITIONAL IMAGING EVALUATION. Reviewed, dictated and finalized at location B. IMPRESSION: 1: Normal limited right breast ultrasound. Recommend correlation with diagnosti c mammogram. BI-RADS CATEGORY 0 - INCOMPLETE STUDY, NEED ADDITIONAL IMAGING EVALUATION.
== END 2023-10-01 08:51 | disposition home or self-care (01) ==
LOC: CHSIMG 08:52
PROVIDERS: PCP Family Medicine; Visit Provider Surgery
DX: N63.10 Unspecified lump in the right breast, unspecified quadrant (principal); R92.8 Other abnormal and inconclusive findings on diagnostic imaging of breast
CPT/HCPCS: 76642

== ENCOUNTER 2023-10-02 08:58 | Outpatient (CLI) | payer OTHER, SELFPAY ==
--- NOTE | ~2023-10-02 | MM_ITS ---
EXAMINATION: MM diagnostic bradly RT w kd HISTORY: Follow-up right breast mass. No abnormality seen on ultrasound. TECHNIQUE: Additional 3-D tomosynthesis images of the right breast were performed and synthetic 2-D i mages were generated. CAD analysis was submitted and interpreted. COMPARISON: Comparison to multiple prior studies sequentially, with oldest reviewed study dated 03/02. BREAST PARENCHYMAL COMPOSITION: Not dense: There are scattered areas of fibroglandular density. FINDINGS: Stable low density circumscribed mass upper outer quadrant of the right breast, middle thir d, most likely benign intramammary lymph node. No definite sonographic correlate on recent ultrasound . IMPRESSION: 1. Probable benign low-density right breast mass. 2. Recommend 6 month follow-up diagnostic bilateral mammogram BI-RADS category 3, probably benign findings. Reviewed, dictated and finalized at location B.
== END 2023-10-02 08:59 | disposition home or self-care (01) ==
LOC: CHSIMG 09:00
PROVIDERS: PCP Family Medicine; Visit Provider Surgery
DX: N63.10 Unspecified lump in the right breast, unspecified quadrant (principal); R92.8 Other abnormal and inconclusive findings on diagnostic imaging of breast
CPT/HCPCS: 77061; 77065; G0279

== ENCOUNTER 2024-02-27 03:06 | Emergency (ER) | payer OTHER, SELFPAY ==
[2024-02-27] VITALS (19 sets, daily range): BP systolic 141–169; BP diastolic 74–108; PULSE 81–97; RESP 16–46; TEMP 36.4; O2SAT 93–100
--- NOTE | ~2024-02-27 | XR_ITS ---
EXAMINATION: XR chest 1V portable DATE: 02/27/2024 03:34 INDICATION: Shortness of breath. TECHNIQUE: A single frontal view of the chest was obtained. COMPARISON: CT abdomen and pelvis 01/13/2023 FINDINGS: There is no pneumonia, pleural effusion, or pneumothorax. The heart size is normal. IMPRESSION: 1. No acute cardiopulmonary disease. Reviewed, dictated and finalized at location A. ENGINEER
[2024-02-27] MEDS: ALBUTEROL SULFATE NEB 2.5 MG/3 ML INH 10 MG INHALATION (03:13)
--- NOTE | 2024-02-27 03:14 | ED_ITS ---
HPI - General Adult General Chief complaint: Shortness of Breath/Dyspnea Stated complaint: Upper Respiratory Time Seen by Provider: 02/27/24 03:10 Source: patient Mode of arrival: ambulatory Limitations: no limitations History of Present Illness HPI narrative: 43 years old white female came to the ED by private car complaining of shortness of breath and wheezing. Patient is telling me that she was seen by her family physician 2 weeks ago for upper respiratory infection Including coughing, wheezing, runny nose and postnasal discharge and was discharged on inhaler, steroid and antibiotic for 5 days. the wheezing got worse gradually over the last 2 days, Patient denies any history of asthma ,cigarette smoking, fever, chills or chest pain Related Data Allergies Allergy/AdvReac Type Severity Reaction Status Date / Time ondansetron (From Zofran) Allergy Severe Rash, Verified 02/27/24 05:30 SHORTNESS OF BREATH. Review of Systems 2 Review of Systems: All systems reviewed & are unremarkable except as noted in HPI and below PMFSH Past Medical History Medical History Morbid obesity Surgical History Surgical History History of History of appendectomy Social History Social History Smoking packs per day: 1 Smoking cigarettes per day: 20.0 Years smoked: 15 Smoking pack-years: 15.00 Smoking status: Former smoker Tobacco type: cigarettes Second hand tobacco smoke exposure: Yes () Smoking end date: 11/16/13 Alcohol intake: current Alcohol use details: 1-2 drinks 1-2x/month Substance use: never Substance use type: does not use Do You Feel Safe in your Home?: Yes Lack of Transportation: No Lack of Food: Never True Current Housing: I Have Housing Concerned About Future Housing: No Difficulty Paying Gas/Electric Bills: No Difficulty Paying for Meds: No Currently Unemployed: No Education: Decline to Answer Difficulty w/ Childcare or Family Care: No Living arrangements: with family Additional living arrangements comments: Gender identity (if verbalized by the patient): Female Spiritual care concerns: No Exam 2 Narrative: General appearance: Well-developed, well-nourished Skin: Normal color Head: Normocephalic, nontraumatic Eyes: Clear conjunctiva ENT: Oropharynx normal, ears normal, nose normal Neck: Supple, nontender Chest and respiratory: Airway patent, mild respiratory distress,, expiratory wheezing bilaterally Heart: Regular rate/rhythm Abdomen: Soft, nontender, no organomegaly, quiet bowel sounds Vascular: Normal peripheral pulses, normal capillary refill. Musculoskeletal: Normal range of motion, nontender back Neurologic: Alert and oriented ?3, AGRONOMY SUPERVISOR is normal as tested, no gross motor deficit Course Consultations Consultation #1: Dr. Ren, ICU, [facility] who accepted patient transfer Date: 02/27/24 Time: 05:05 Vital Signs Vital signs: Vital Signs Temperature 36.4 C 02/27/24 03:06 Pulse Rate 97 02/27/24 03:06 Respiratory Rate 46 H 02/27/24 03:06 Blood Pressure 146/102 H 02/27/24 03:06 Pulse Oximetry 93 02/27/24 03:06 Oxygen Delivery Room Air 02/27/24 03:06 Temperature 36.4 C 02/27/24 03:06 Pulse Rate 94 02/27/24 06:31 Respiratory Rate 16 02/27/24 06:31 Blood Pressure 154/79 H 02/27/24 06:31 Pulse Oximetry 95 02/27/24 06:31 Oxygen Delivery BiPAP 02/27/24 06:31 Oxygen Flow Rate 7 02/27/24 03:46 Medical Decision Making [facility] Narrative Medical decision making narrative: patient came with generalized wheezing which started 2 weeks ago and got worse over the last 2 days. Vital sign showing blood pressure 146/102, heart rate 97 beats per minute, respiration 40 6 beats per minute, temperature 36.4?, saturation on room air 93%. Physical examination consistent with obese patient with expiratory wheezing bilaterally Differential diagnosis include asthma exacerbation, allergic reaction, pneumonia, upper respiratory viral infection, less likely congestive heart failure blood workup today include CBC, CMP, troponin showed EKG on arrival showed normal sinus rhythm at 88 beats per minute, nonspecific ST T-wave abnormality, abnormal EKG Chest x-ray showed right lower lobe atelectasis versus pneumonia Differential Diagnosis Differential Diagnosis: as above Vital Signs Vital Signs: Vital Signs Temperature 36.4 C 02/27/24 03:06 Pulse Rate 97 02/27/24 03:06 Respiratory Rate 46 H 02/27/24 03:06 Blood Pressure 146/102 H 02/27/24 03:06 Pulse Oximetry 93 02/27/24 03:06 Oxygen Delivery Room Air 02/27/24 03:06 Temperature 36.4 C 02/27/24 03:06 Pulse Rate 94 02/27/24 06:31 Respiratory Rate 16 02/27/24 06:31 Blood Pressure 154/79 H 02/27/24 06:31 Pulse Oximetry 95 02/27/24 06:31 Oxygen Delivery BiPAP 02/27/24 06:31 Oxygen Flow Rate 7 02/27/24 03:46 Lab Data 02/27/24 03:20 02/27/24 03:20 Labs: Lab Results 02/27/24 02/27/24 Range/Units 03:20 04:22 WBC 9.0 (4.8-10.8) K/mm3 RBC 4.80 (4.20-5.40) M/mm3 Hgb 12.9 (12.0-15.0) g/dL Hct 40.5 (35.0-49.0) % MCV 84.4 (78.0-102.0) fL MCH 26.9 L (27.0-31.0) pg MCHC 31.9 L (32-36) g/dL RDW 14.3 (11.6-14.4) % Plt Count 409 (150-420) K/mm3 MPV 10.0 (9.2-11.8) fl Immature Gran % (Auto) 0.6 H (0.0-0.0) % Neut % (Auto) 61.4 (50.0-70.0) % Lymph % (Auto) 21.4 (18.0-42.0) % [place] % (Auto) 10.3 (2.0-11.0) % Eos % (Auto) 5.9 (1.0-6.0) % Baso % (Auto) 0.4 (0.0-1.0) % Lymph # (Auto) 1.93 (1.10-4.50) K/mm3 [place] # (Auto) 0.93 H (0.10-0.90) K/mm3 Eos # (Auto) 0.53 H (0.02-0.50) K/mm3 Baso # (Auto) 0.04 (0.00-0.10) K/mm3 Abs Immat Gran (auto) 0.05 H (0.00-0.00) K/mm3 Absolute Neuts (auto) 5.54 (1.70-7.20) K/mm3 Absolute Nucleated RBC 0.00 (0.00-0.00) K/mm3 Nucleated RBC % 0.0 (0-0.0) % PT 10.0 (9.50-12.1) Seconds INR 0.9 APTT 24.7 (23.9-30.70) Sec Sodium 140 (136-145) mmol/L Potassium 3.9 (3.5-5.1) mmol/L Chloride 101 (98-108) mmol/L Carbon Dioxide 28 (21-32) mmol/L Anion Gap 11 (4-12) mmol/L BUN 9 (7-18) mg/dL Creatinine 0.75 (0.55-1.02) mg/dL Estim Creat Clear Calc 124 ml/min Estimated GFR > 60 (59 - ) Glucose 132 H (70-99) mg/dL Calculated Osmolality 290 (285-295) mOsm/kg Lactic Acid 1.7 (0.4-2.0) mmol/L Calcium 8.7 (8.5-10.1) mg/dL Total Bilirubin 0.3 (0.00-1.00) mg/dL AST 12 L (15-37) U/L ALT 24 (14-59) U/L Alkaline Phosphatase 114 (46-116) U/L Troponin I < 4.0 (0.00-60.4) ng/L C-Reactive Protein 1.6 H (0.0-0.9) mg/dL NT-Pro-B Natriuret Pep 25 (0-125) pg/mL Total Protein 7.7 (6.4-8.2) g/dL Albumin 3.5 (3.4-5.0) g/dL Influenza A (RT-PCR) Negative (Negative) Influenza B (RT-PCR) Negative (Negative) RSV (RT-PCR) Negative (Negative) SARS-CoV-2 RNA (RT-PCR) Negative (Negative) ABG Data ABG results: 02/27/24 04:17 Puncture Site Left radial ABG pH 7.35 ABG pCO2 42.6 ABG pO2 408.3 H ABG PO2/FiO2 Ratio Not Reportable ABG HCO3 22.8 L ABG O2 Saturation 99.3 H ABG O2 Content 19.8 ABG Base Excess -2.8 L A-a Gradient Not Reportable Oxyhemoglobin 98.8 O2 Delivery Device High flow nasal tabitha O2 Liters/Min Not Reportable Imaging Data Radiologist's impression: chest x-ray showed interstitial infiltration, right lower lobe atelectasis versus pneumonia ECG Data EKG #1: Attestation: I personally reviewed and interpreted this ECG as follows: ECG completion date: 02/27/24 Interpretation: normal sinus rhythm at 88 beats per minute, nonspecific ST and T-wave abnormalities, abnormal EKG Critical Care Time Critical Care Time Critical Care Time: Yes Total Critical Care Time: 30 Discharge Plan Discharge Clinical Impression: Acute hypoxic respiratory failure, Acute bronchospasm, Pneumonia Patient Disposition: Acute Care Hospital Condition: Stable Additional Instructions: transferred to [facility] Patient Language: Slovak Prescriptions: No Action sertraline 100 mg tablet 100 mg PO DAILY Qty: 90 0RF eszopiclone [Lunesta] 3 mg tablet 3 mg PO QHS Qty: 10 2RF tirzepatide 2.5 mg/0.5 mL pen injector 2.5 mg subcut WEEKLY Qty: 2 0RF Rx Instructions: for 4 weeks albuterol sulfate 90 mcg/actuation HFA aerosol inhaler 1 inh inhalation Q4H Qty: 8.5 0RF prednisone 50 mg tablet 50 mg PO DAILY Qty: 5 0RF doxycycline hyclate 100 mg tablet 100 mg PO BID Qty: 10 0RF estradiol 2 mg tablet 2 mg PO DAILY 21 Days Qty: 21 0RF Rx Instructions: off 1 week; repeat cycle Follow-up/Referrals: Donny Escobedo DO [Primary Care Provider] -
--- NOTE | 2024-02-27 03:16 | ECG_ITS ---
Test Date: 2024-02-27 03:52:49 Measurements Intervals [place] Rate: 88 P: 57 WA: 148 QRS: 54 QRSD: 88 T: -4 QT: 356 QTc: 432 Interpretive Statements SINUS RHYTHM NONSPECIFIC ST & T-WAVE ABNORMALITY ABNORMAL ECG No previous ECG available for comparison Electronically Signed On 02-27-2024 10:21:39 MANAGER REHAB by Moody Reeves M.D.
[2024-02-27] MEDS: EPINEPHrine HCL INJ 1 MG/ML AMPUL 0.3 MG IM ×2 (03:23→04:03)
[2024-02-27] MEDS: diphenhydrAMINE HCl INJ 50 MG/ML VIAL IV PUSH (03:23)
[2024-02-27] MEDS: methylPREDNISolone SOD SUCC 125 MG VIAL IV PUSH (03:24)
[2024-02-27 03:33] LABS: Basophils Absolute Auto 0.04 K/mm3 (0.00-0.10); Basophils Percent Auto 0.4 % (0.0-1.0); Eosinophils Absolute Auto 0.53 K/mm3 (0.02-0.50); Eosinophils Percent Auto 5.9 % (1.0-6.0); Hematocrit 40.5 % (35.0-49.0); Hemoglobin 12.9 g/dL (12.0-15.0); Immature Granulocyte Absolute 0.05 K/mm3 (0.00-0.00); Immature Granulocyte Percent A 0.6 % (0.0-0.0); Lymphocytes Absolute Auto 1.93 K/mm3 (1.10-4.50); Lymphocytes Percent Auto 21.4 % (18.0-42.0); Mean Corpuscular HGB Conc 31.9 g/dL (32-36); Mean Corpuscular Hemoglobin 26.9 pg (27.0-31.0); Mean Corpuscular Volume 84.4 fL (78.0-102.0); Monocytes Absolute Auto 0.93 K/mm3 (0.10-0.90); Monocytes Percent Auto 10.3 % (2.0-11.0); Neutrophils Absolute Auto 5.54 K/mm3 (1.70-7.20); Neutrophils Percent Auto 61.4 % (50.0-70.0); Platelet Count Result 409 K/mm3 (150-420); Red Cell Distribution Width 14.3 % (11.6-14.4)
--- NOTE | 2024-02-27 03:45 | PC.NURSE ---
EKG IN PROGRESS BY STEVE ESPINOZA. PATIENT REPORTS THAT SHE IS STARTING TO FEEL BETTER WITH THE BREATHING TREATMENT. CURRENTLY WAITING ON RT TO ARRIVE FOR BIPAP
[2024-02-27 03:50] LABS: INR 0.9; Partial Thromboplastin Time 24.7 Sec (23.9-30.70)
--- NOTE | 2024-02-27 03:50 | PC.NURSE ---
PATIENT IS NOW ABLE TO SPEAK IN FULL SENTENCES. TALKING WITH STAFF AND HER . CALLL LIGHT IN REACH
[2024-02-27 03:55] LABS: Alanine Aminotransferase 24 U/L (14-59); Albumin Level 3.5 g/dL (3.4-5.0); Alkaline Phosphatase 114 U/L (46-116); Anion Gap 11 mmol/L (4-12); Aspartate Amino Transferase 12 U/L (15-37); Bilirubin,Total 0.3 mg/dL (0.00-1.00); Blood Urea Nitrogen 9 mg/dL (7-18); Calcium 8.7 mg/dL (8.5-10.1); Carbon Dioxide 28 mmol/L (21-32); Chloride 101 mmol/L (98-108); Estimated CRCL calculation 124 ml/min; Estimated Glomerular Filt Rate > 60; Glucose 132 mg/dL (70-99); NT Pro B Type Natriuretic Pept 25 pg/mL (0-125); Osmolality Calculated 290 mOsm/kg (285-295); Potassium 3.9 mmol/L (3.5-5.1); Sodium 140 mmol/L (136-145); Total Protein 7.7 g/dL (6.4-8.2)
[2024-02-27 03:59] LABS: Troponin I < 4.0 ng/L (0.00-60.4)
[2024-02-27] MEDS: MAGNESIUM SULF 2 GM/WATER 50ML 2 GM/50 ML BAG IVPB (04:03)
[2024-02-27 04:20] LABS: Base Excess ABG -2.8 mmol/L (0-2); HCO3 ABG 22.8 mmol/L (23-29); Oxygen Content ABG 19.8 %vol (16.0-22.0); Oxygen Saturation ABG 99.3 % (95-97); Oxyhemoglobin 98.8 % (94-100); PCO2 ABG 42.6 mmHg (35-45); PO2 ABG 408.3 mmHg (80-90); pH ABG 7.35 (7.35-7.45)
[2024-02-27 04:21] LABS: Modified Allen's Test Pass; Site Drawn LEFT RADIAL
[2024-02-27 04:22] LABS: Device HIGH FLOW NASAL CANN
[2024-02-27 04:23] LABS: CRP 1.6 mg/dL (0.0-0.9)
[2024-02-27 04:24] LABS: SARS-CoV-2 RNA PCR Negative (Negative)
[2024-02-27 04:24] LABS: Lactic Acid Reflex 1.7 mmol/L (0.4-2.0)
[2024-02-27 04:25] LABS: Influenza A QL RT-PCR Negative (Negative); Influenza B QL RT-PCR Negative (Negative); RSV RNA, RT-PCR Negative (Negative)
--- NOTE | 2024-02-27 04:36 | PC.NURSE ---
PATIENT REPORTS THAT SHE IS FEELING BETTER WITH THE BIPAP IN PLACE. PATIENT NO LONGER HAS WHEEZING WITH BIPAP
--- NOTE | 2024-02-27 05:01 | PC.NURSE ---
PATIENT CURRENTLY RESTING ON STRETCHER, BIPAP IN PLACE. WOB NON LABORED AT THIS TIME. CALL LIGHT IS IN REACH.
[2024-02-27] MEDS: levoFLOXacin 750 MG/D5W 150 ML 750 MG/150 ML BAG 100 MG IVPB (05:07)
--- NOTE | 2024-02-27 06:00 | PC.NURSE ---
RESTING ON STRETCHER. RESP EVEN AND UNLABORED WHILE SLEEPING. BIPAP IN PLACE. CALL LIGHT IN REACH.
--- NOTE | 2024-02-28 17:18 | PC.NURSE ---
BLOOD CULTURE REVIEWED, PRELIMINARY, NO GROWTH
== END 2024-02-27 06:53 | disposition short-term general hospital (02) ==
PROVIDERS: Emergency Provider Emergency Medicine; PCP Family Medicine
DX: J96.01 Acute respiratory failure with hypoxia (principal); J18.9 Pneumonia, unspecified organism; J98.01 Acute bronchospasm; Z87.891 Personal history of nicotine dependence; E66.01 Morbid (severe) obesity due to excess calories; Z68.44 Body mass index [BMI] 60.0-69.9, adult; Z20.822 Contact with and (suspected) exposure to COVID-19
CPT/HCPCS: 36415; 36600; 71045; 80053; 82805; 83605; 83880; 84484; 85018; 85025; 85610; 85730; 86140; 87040; 87637; 93005; 96365; 96367; 96372; 96375; 99285; J0171; J1200; J1956; J2919; J3475

== ENCOUNTER 2024-09-28 10:58 | Outpatient (CLI) | payer OTHER, SELFPAY ==
--- OUTSIDE RECORDS SUMMARY | 2024-09-28 11:06 | XMS_ITS | Clinical Summary ---
Author Organization [facility] Address [address] [place] [address] Phone Care Team Providers Care Bush Hog Operator Name Role Phone Unavailable Primary Care Provider Unavailabl e Allergies Active Allergy Reactions Criticality Noted Date Comments Ondansetron Hcl Hives High 02/27/2024 Medications estradioL (ESTRACE) 2 mg tablet Take 1 Tablet by mouth daily. 12/16/2023 Active eszopiclone (LUNESTA) 3 mg Tablet Take 3 mg by mouth daily at bedtime. Reports taking every 3 days 02/03/2024 Active sertraline (ZOLOFT) 50 mg tablet Take 2 Tablets by mouth daily. Reports she take 100 mg daily 01/11/2024 Active Active Problems Problem Noted Date Diagnosed Date Moderate persistent asthma with acute exacerbati on 02/29/2024 Acute respiratory failure with hypoxia Lactic acidosis 02/27/2024 Hypophosphatemia 02/27/2024 Ground glass opacity present on imaging of lung 02/27/2024 Community acquired pneumonia of right lung 02/26 Encounters Date Type Department Care Team Description 08/31/2024 External Device Data [facility] ABSTRACTION Provider, Abstract 08/31/2024 External Device Data [facility] ABSTRACTION Provider, Abstract 08/03/2024 External Device Data [facility] ABSTRACTION Provider, Abstract 08/02/2024 External Device Data [facility] AB[facility]CTION Provider, Abstract 07/12/2024 External Device Data [facility] ABSTRACTION Provider, Abstract 07/08/2024 External Device Data [facility] ABSTRACTION Provider, Abstract 07/06/2024 External Device Data [facility] ABSTRACTION Provider, Abstract 07/05/2024 External Device Data [facility] ABSTRACTION Provider, Abstract from Last 3 Months Social History Tobacco Use Types Packs/Day Years Used Date Smoking Tobacco: Never Assessed Comments Unknown Sex and Gender Information Value Date Recorded Sex Assigned at Not on file Legal Sex Female 11:36 PM CDT Gender Identity Not on file Sexual Orientation Not on file Last Filed Vital Signs Vital Sign Reading Time Taken Comments Blood Pressure 134/82 03/01/2024 1:00 PM LUMBER TRIMMER Pulse 97 03/01/2024 1:00 PM LUMBER TRIMMER Temperature 36.7 C (98.1 F) 03/01/2024 1:00 PM LUMBER TRIMMER Respiratory Rate 20 03/01/2024 1:00 PM LUMBER TRIMMER Oxygen Saturation 95% 03/01/2024 1:00 PM LUMBER TRIMMER Inhaled Oxygen Concentration - - Weight 156 kg (343 lb 14.4 oz) 02/28/2024 5:00 A M LUMBER TRIMMER Height 160 cm (5' 3) 02/27/2024 10:28 AM LUMBER TRIMMER Body Mass Index 60.92 02/27/2024 10:28 AM LUMBER TRIMMER Plan of Treatment Health Maintenance Due Date Last Done Comments HPV VACCINES (1 - 3-dose series) 1996 DTAP/TDAP/TD VACCINES (1 - Tdap) 2000 HEPATITIS B VACCINES (1 of 3 - 19+ 3-dose series) 06/16 HPV/Cotest (21-29) 2002 CERVICAL CANCER SCREENING 07/03/2011 HPV/Cotest (30-65) 07/03/2011 PAP SMEAR 07/03/2011 BREAST CANCER SCREENING 2021 INFLUENZA VACCINE (#1) 2024 Pre-Diabetes and Diabetes Screening 02/26/202702/26 Procedures Procedure Name Priority Date/Time Associated Diagnosis Comments HEMOGLOBIN A1C Routine 02/27/2024 9:07 AM LUMBER TRIMMER from Last 3 Months or Most Recently Relevant to Health Maintenance Results * HEMOGLOBIN A1C (02/27/2024 9:07 AM LUMBER TRIMMER) HEMOGLOBIN A1C 5.4 <5.7 % 02/27/2024 11:09 AM LUMBER TRIMMER [facility] EST. AVG GLUCOSE, A1C 108 mg/dL 02/27/2024 11:09 AM LUMBER TRIMMER [facility] Blood Venipuncture / Unknown 02/27/2024 9:07 AM LUMBER TRIMMER 02/27/2024 9:16 AM LUMBER TRIMMER Narrative [facility] - 02/27/2024 11:09 AM LUMBER TRIMMER HGB A1C INTERPRETATION NORMAL: <5.7% PRE-DIABETES: 5.7 - 6.4% DIABETES: 6.5% OR GREATER Toni Hawkins MD CHEMISTRY ORDERABLES Final Resu lt ISABEL [facility] CLIA# [id number] [address] [place] [address] from Last 3 Months or Most Recently Relevant to Health Maintenance Insurance RX [employer] RX Member Subscriber Plan / Payer (Ef fective 2024-Present) Name:Bell Rios Relation to Subscriber:Self Name:Bell Rios Subscriber ID:Not on file Payer ID:Not on file Group ID:[id number] Type:RX Commercial Address: [place] Advance Directives For more information, please contact: [phone] * Full Code (Latest Code Status on File) Date Activated Date Inactivated Comments 02/27/2024 8:37 AM 03/01/2024 6:06 PM
--- OUTSIDE RECORDS SUMMARY | 2024-09-28 11:06 | XMS_ITS | Clinical Summary ---
Author Organization [facility] Address [address] [place] [address] Care Team Providers Care Childbirth Educator Name Role Phone Charbel Stacklyn Vicky JUNIOR PROGRAMMER ANALYST-SURGERY TECHNICIAN Primary Care Provider Source Comments [facility],non-owned Affiliates and Associated Physician Practices is amultiple site organization consisting of ambulatory clinics and hospital sitesin [place], [place], [place] and [place]. This disclosure is being madepursuant to the Care Everywhere program and may not contain all information available regarding this patient. Last updated 17.[employer] [facility] Allergies No known active allergies Medications * Be aware that medications may not be up to date on this document. Alwaysverify current medications with the patient. No known medications Social History Tobacco Use Types Packs/Day Years Used Date Smoking Tobacco: Never Assessed Comments Unknown Sex and Gender Information Value Date Recorded Sex Assigned at Not on file Legal Sex Female 3:52 PM CDT Gender Identity Not on file Sexual Orientation Not on file Last Filed Vital Signs Vital Sign Reading Time Taken Comments Blood Pressure 140/84 08/22/2021 3:34 PM CDT Pulse 94 08/22/2021 3:34 PM CDT Temperature 36.2 C (97.2 F) 08/22/2021 3:34 PM CDT Respiratory Rate 20 08/22/2021 3:34 PM CDT Oxygen Saturation - - Inhaled Oxygen Concentration - - Weight 105.7 kg (233 lb) 08/22/2021 3:34 PM CDT Height 162.6 cm (5' 4) 08/22/2021 3:34 PM CDT Body Mass Index 39.99 08/22/2021 3:34 PM CDT Plan of Treatment Health Maintenance Due Date Last Done Comments LIPID TESTING 1981 MAMMOGRAM 1981 HIV SCREENING 1996 HEPATITIS C SCREENING 06/28/1999 DTAP/TDAP/TD VACCINES (1 - Tdap) 2000 HEPATITIS B VACCINE (1 of 3 - 19+ 3-dose series) 2000 PAP SMEAR 2002 HPV VACCINE (1 - 3-dose SCDM series) 2008 SCREENING FOR DIABETES 08/22/2021 COVID-19 VACCINE (1 - 2023-2 5 season) 2023 DEPRESSION SCREENING 02/17/2024 INFLUENZA VACCINE (#1) 2024 ZOSTER VACCINE (1 of 2) 07/03/2031 HIB VACCINE Aged Out No longer eligi ble based on patient's age to complete this topic MENINGOCOCCAL (Group B) VACC INE SHARED DECISION-MAKING Aged Out No longer eligibl e based on patient's age to complete this topic MENINGOCOCCAL GROUPS A/C/Y/W VACCINE Aged Out No longer eligible b ased on patient's age to complete this topic PNEUMOCOCCAL VACCINE Aged Out No long er eligible based on patient's age to complete this topic Insurance SELF PAY NO INSURANCE Member Subscriber Plan / Payer (Ef fective for All Dates) Name:Rosalina Sage Member ID:Not on file Relation to Subscriber:Not on file Name:ROSALINA SAGE Subscriber ID:Not on file (Home) Address: [address] [place], [place] [id number] Payer ID:Not on file Group ID:Not on file Type:Self Pay Address: [facility] * Guarantor: ROSALINA SAGE Account Type Relation to Patient Date of Phone Billing Address Personal/Family [address] [place] [address] SELF PAY NO INSURANCE Member Subscriber Plan / Payer (Ef fective for All Dates) Name:Rosalina Sage Member ID:Not on file Relation to Subscriber:Not on file Name:ROSALINA SAGE Subscriber ID:Not on file Address: [address] [place] [address] Payer ID:Not on file Group ID:Not on file Type:Self Pay Address: [facility] SELF PAY NO INSURANCE Member Subscriber Plan / Payer (Ef fective for All Dates) Name:Rosalina Sage Member ID:Not on file Relation to Subscriber:Not on file Name:ROSALINA SAGE Subscriber ID:Not on file Address: [address] [place], [place] [id number] Payer ID:Not on file Group ID:Not on file Type:Self Pay Address: [facility] SELF PAY NO INSURANCE Member Subscriber Plan / Payer (Ef fective for All Dates) Name:Rosalina Sage Vicky Member ID:Not on file Relation to Subscriber:Not on file Name:ROSALINA SAGE Subscriber ID:Not on file Address: [address] [place], [place] [phone] Payer ID:Not on file Group ID:Not on file Type:Self Pay Address: [facility] Care Teams Childbirth Educator Relationship Specialty Start Date End Date Columba Stack APRN-SILVIA [address] [place] [address] PCP - General 07/19/21
[2024-09-29 07:09] LABS: Varicella-Zoster Ab, IgG Reactive (Non Reactive)
[2024-10-01 06:52] LABS: TB Skin Test Erythema 0 mm; TB Skin Test Induration 0 mm (0-10); TB Skin Test Interpretation Negative (Negative); TB Skin Test Site Left Arm
== END 2024-09-28 10:59 | disposition home or self-care (01) ==
PROVIDERS: PCP Family Medicine; Visit Provider Nurse Practitioner Family
DX: Z02.0 Encounter for examination for admission to educational institution (principal)
CPT/HCPCS: 36415; 86317; 86580; 86787

== ENCOUNTER 2024-10-07 12:43 | Outpatient (CLI) | payer OTHER, SELFPAY ==
--- OUTSIDE RECORDS SUMMARY | 2024-10-07 12:48 | XMS_ITS | Clinical Summary ---
Author Organization [facility] Address [address] [place] [place] [address] Care Team Providers Care Emanations Analysis Technician Name Role Phone Charbel Stacklyn Vicky TELEPHONE SALES AGENT-CONE FORMER Primary Care Provider Source Comments [facility],non-owned Affiliates and Associated Physician Practices is amultiple site organization consisting of ambulatory clinics and hospital sitesin [place], [place], [place] and [place]. This disclosure is being madepursuant to the Care Everywhere program and may not contain all information available regarding this patient. Last updated 17.[employer] [facility] Allergies No known active allergies Medications * [...] / Payer (Ef fective for All Dates) Name:oRsalina Sage Member ID:Not on file Relation to Subscriber:Not on file Name:ROSALINA SAGE Subscriber ID:Not on file (Home) Address: [address] [place], [place] [id number] Payer ID:Not on file Group ID:Not on file Type:Self Pay Address: [facility] * Guarantor: ROSALINA SAGE Account Type Relation to Patient Date of Phone Billing Address Personal/Family [address] [place] [address] SELF PAY NO INSURANCE Member Subscriber Plan / Payer (Ef fective for All Dates) Name:Rosalina Sage Member ID:Not on file Relation to Subscriber:Not on file Name:ROSALINA SAGE Subscriber ID:Not on file Address: [address] [place] [address] Payer ID:Not on file Group ID:Not on file Type:Self Pay Address: [facility] SELF PAY NO INSURANCE Member Subscriber Plan / Payer (Ef fective for All Dates) Name:Rosalina Sage Member ID:Not on file Relation to Subscriber:Not on file Name:ROSALINA SAGE Subscriber ID:Not on file Address: [address] [place], [place] [id number] Payer ID:Not on file Group ID:Not on file Type:Self Pay Address: [facility] SELF PAY NO INSURANCE Member Subscriber Plan / Payer (Ef fective for All Dates) Name:Rosalina Sage Vicky Member ID:Not on file Relation to Subscriber:Not on file Name:ROSALINA SAGE Subscriber ID:Not on file Address: [address] [place], [place] [id number] Payer ID:Not on file Group ID:Not on file Type:Self Pay Address: [facility] Care Teams Emanations Analysis Technician Relationship Specialty Start Date End Date Columba Stack APRN-SILVIA [address] [place] [address] PCP - General 07/19/21
--- OUTSIDE RECORDS SUMMARY | 2024-10-07 12:48 | XMS_ITS | Clinical Summary ---
Author Organization [facility] Address Formerly [facility] [place] [address] Care Team Providers Care Parachute Officer Name Role Phone Donny Escobedo DO Primary Care Provider [phone] Medications sertraline (ZOLOFT) 100 MG tablet Take 1 tablet (100 mg total) by mouth daily. Active estradiol (ESTRACE) 2 MG tablet Take 1 tablet (2 mg total) by mouth daily. Active Eszopiclone 3 MG Tab Take 3 mg by mouth every 3 (three) days. Take immediately before bedtime Active budesonide-glyco pyrrolate-formot nani (BREZTRI) 160-9-4.8 MCG/ACT inhaler Inhale 2 puffs into the lungs 2 (two) times daily as needed. Active montelukast (SINGULAIR) 10 MG tabletIndication s:Moderate persistent asthma without complication (HHS/HCC) Take 1 tablet (10 mg total) by mouth nightly at bedtime. 30 tablet 4 Active Active Problems Problem Noted Date Diagnosed Date Moderate persistent asthma without complication (HHS/HCC) 05/16/2024 Shortness of breath 05/16/2024 Excessive daytime sleepiness 05/16/2024 Encounters Date Type Department Care Team Description 08/12/2024 Telephone [facility] [address] [place] [address] Rohan Ellison MD Returned Call 08/11/2024 Orders Only [facility] [address] [place] [address] Rohan Ellison MD from Last 3 Months Social History Tobacco Use Types Packs/Day Years Used Date Smoking Tobacco: Never Smokeless Tobacco: Never Alcohol Use Standard Drinks/Week Comments Yes 0 (1 standard drink = 0.6 oz pur e alcohol) not very often Comments Unknown Sex and Gender Information Value Date Recorded Sex Assigned at Female 06/01/2024 1:19 PM CDT Legal Sex Female 4:13 AM CONTROL CLERK AUDITING Gender Identity Not on file Sexual Orientation Not on file Last Filed Vital Signs Vital Sign Reading Time Taken Comments Blood Pressure 133/82 05/05/2024 3:23 PM CDT Pulse 78 05/05/2024 3:23 PM CDT Temperature - - Respiratory Rate 20 05/05/2024 3:23 PM CDT Oxygen Saturation 99% 05/05/2024 3:23 PM CDT Inhaled Oxygen Concentration - - Weight 158.5 kg (349 lb 6.4 oz) 05/05/2024 3:23 PM CDT Height 160 cm (5' 3) 05/05/2024 3:23 PM CDT Body Mass Index 61.89 05/05/2024 3:23 PM CDT Plan of Treatment Health Maintenance Due Date Last Done Comments Cervical Cancer Screening Pa p Smear (Age 30 to 64) Every 3 Years 1981 Annual Physical 1984 Hepatitis C 07/03/1999 DTaP, Tdap and Td Vaccines ( 1 - Tdap) 2000 Hepatitis B Vaccines (1 of 3 - 19+ 3-dose series) 2000 Pneumococcal Vaccine: Pediat rics (0 to 5 Years) and At-Risk Patients (6 to 49 Years) (1 of 2 - PCV) 2000 HPV Vaccines (1 - 3-dose SCD M series) 2008 Cervical Cancer Screening Pa p with HPV Testing (Age 30 to 64) Every 5 Years 07/03/2011 Cervical Cancer Screening with HPV 07/03/2011 Mammogram Screening 2021 COVID-19 Vaccine ( - 2023-2 5 season) 2023 PHQ-2 (Physician [place]) 02/17/2024 Meningococcal B Vaccine Aged Out No l onger eligible based on patient's age to complete this topic Meningococcal Vaccine Aged Out No jonathan rod eligible based on patient's age to complete this topic RSV Immunizations Under 20 Months Aged Out No longer eligible based on patient's age to complete this topic Insurance [facility] Care Teams Parachute Officer Relationship Specialty Start Date End Date Donny Escobedo DO [address] [place] [address] PCP - General FAMILY PRACTICE 06/28/24
--- OUTSIDE RECORDS SUMMARY | 2024-10-07 12:48 | XMS_ITS | Clinical Summary ---
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 Name Role Phone Unavailable Primary Care [...] Comments Blood Pressure 134/82 03/01/2024 1:00 PM ORTHODONTIST Pulse 97 03/01/2024 1:00 PM ORTHODONTIST Temperature 36.7 C (98.1 F) 03/01/2024 1:00 PM ORTHODONTIST Respiratory Rate 20 03/01/2024 1:00 PM ORTHODONTIST Oxygen Saturation 95% 03/01/2024 1:00 PM ORTHODONTIST Inhaled Oxygen Concentration - - Weight 156 kg (343 lb 14.4 oz) 02/28/2024 5:00 A M ORTHODONTIST Height 160 cm (5' 3) 02/27/2024 10:28 AM ORTHODONTIST Body Mass Index 60.92 02/27/2024 10:28 AM ORTHODONTIST Plan of Treatment Health Maintenance Due Date [...] Comments HEMOGLOBIN A1C Routine 02/27/2024 9:07 AM ORTHODONTIST from Last 3 Months or Most Recently Relevant to Health Maintenance Results * HEMOGLOBIN A1C (02/27/2024 9:07 AM ORTHODONTIST) HEMOGLOBIN A1C 5.4 <5.7 % 02/27/2024 11:09 AM [facility] [employer] [facility] EST. AVG GLUCOSE, A1C 108 mg/dL 02/27/2024 11:09 AM [facility] Blood Venipuncture / Unknown 02/27/2024 9:07 AM ORTHODONTIST 02/27/2024 9:16 AM ORTHODONTIST Narrative [facility] - 02/27/2024 11:09 AM ORTHODONTIST HGB A1C INTERPRETATION NORMAL: <5.7% PRE-DIABETES: 5.7 - 6.4% DIABETES: 6.5% OR GREATER us Toni Hawkins MD CHEMISTRY ORDERABLES Final Resu lt [facility] CLIA# [id number] [address] [place] [id number] from Last 3 Months or Most Recently Relevant to Health Maintenance Insurance RX [employer] Member Subscriber Plan / Payer (Ef fective 2024-Present) Name:Bell Rios Relation to Subscriber:Self Name:Bell Rios Subscriber ID:Not on file Payer ID:Not on file Group ID:[id number] Type:RX Commercial Address: [place] Advance Directives For more information, please contact: [phone] * Full Code (Latest Code Status on File) Date Activated Date Inactivated Comments 02/27/2024 8:37 AM 03/01/2024 6:06 PM
[2024-10-11 17:23] LABS: TB Skin Test Induration 0 mm (0-10); TB Skin Test Site Right Arm
[2024-10-11 17:24] LABS: TB Skin Test Interpretation Negative (Negative)
[2024-10-11 17:25] LABS: TB Skin Test Erythema 0 mm
== END 2024-10-07 12:44 | disposition home or self-care (01) ==
PROVIDERS: PCP Family Medicine; Visit Provider Nurse Practitioner Family
DX: Z02.0 Encounter for examination for admission to educational institution (principal)
CPT/HCPCS: 36415; 86580

== ENCOUNTER 2024-10-24 12:34 | Outpatient (CLI) | payer OTHER, SELFPAY ==
--- NOTE | ~2024-10-24 | MM_ITS ---
EXAMINATION: MM diagnostic bradly BI w dk INDICATION: 44-year old female; 6 month follow up probably benign low-density mass in the upper outer right breast centered at middle third, initially evaluated on 03/06/2023. No sonographic correlate on the study of 10/02/2023. Annual left mammogram. COMPARISON: 10/02/2023 through 03/02/2023. TECHNIQUE:Bilateral breast Digital breast tomosynthesis CC and MLO views were obtained with computer-aided detection to assist in interpretation of the study. FINDINGS: There are scattered areas of fibroglandular density. The circumscribed mass of concern in the upper outer right breast centered at middle depth reidentified is Unchanged. No focal dominant mass, architectural distortion, or suspicious microcalcifications are identified in either breast. IMPRESSION: Probably benign mass in the upper outer right breast have demonstrated approximately 19 months stability since initial discovery. RECOMMEND: Diagnostic bilateral mammogram in 12 months. BI-RADS 3, PROBABLY BENIGN Reviewed, dictated and finalized at location B. IMPRESSION: Probably benign mass in the upper outer right breast have demonst rated approximately 19 months stability since initial discovery. RECOMMEND: Diagnostic bilateral mammogram in 12 months. BI-RADS 3, PROBABLY BENIGN
--- OUTSIDE RECORDS SUMMARY | 2024-10-24 06:15 | XMS_ITS ---
Author Organization [facility] [employer] Address [address] [place] [address] Care Team Providers Care Cytotechnologist Supervisor Name Role Phone Donny Escobedo DO Primary Care Provider Unavail able Karlie Cherry Unavailable [phone] Allergies Allergen (clinical drug ingredient) Drug/Non Drug Allergy documented on EMR Reaction Allergy Type Onset Date Status Srikanth mcdaniels Drug Allergy Active REASON FOR VISIT 1 month f/u, Follow up psychological reason Medications Medication SIG (Take, Route, Frequency, Duration) Notes Start Date End Date Status Sertraline HCl 100 MG Tablet TAKE 2 TABLETS BY MOUTH ONCE DAILY Oral; Duration: 90 Days Active Estradiol 2 MG Tablet TAKE 1 TABLET BY MOUTH ONCE DAILY Oral; Duration: 90 Days Active traZODone HCl 100 MG Tablet 1 tablet at bedtime Orally bedtime; Duration: 90 days 10/24/2024 Active Breztri Aerosphere 160-9-4.8 MCG/ACT Aerosol INHALE 2 PUFFS BY MOUTH TWICE DAILY Inhalation; Duration: 30 Days Active Albuterol Sulfate HFA 108 (90 Base) MCG/ACT Aerosol Solution INHALE 1 PUFF BY MOUTH EVERY 4 HOURS Inhalation; Duration: 34 Days Active Montelukast Sodium 10 MG Tablet TAKE 1 TABLET BY MOUTH NIGHTLY AT BEDTIME Oral; Duration: 30 Days [id number],Unavailab le Active Eszopiclone 3 MG Tablet TAKE 1 TABLET BY MOUTH EVERY DAY AT BEDTIME Oral; Duration: 10 Days G4700,Unavailab le Active Auvelity 45-105 MG Tablet Extended Release 1 tablet Orally twice a day; Duration: 90 days Active Social History Sex Assigned At : Social History Observation Description Sex Assigned At Female Encounters Encounter Location Date Provider Diagnosis [facility] [employer] [address] [place] [address] 10/24/2024 Karlie Cherry Encounter for screen ing for depression Z13.31 ; MDD (major depressive disorder), severe F32.2 ; Encounter for screening for cardiovascular disorders Z13.6 ; Primary insomnia F51.01 and DOLORES (generalized anxiety disorder) F41.1 Assessments Encounter Date Diagnosis (ICD Code) Assessment Notes Treatment Notes Treatment Clinical Notes Section Notes 10/24/2024 Encounter for screening for depression (ICD-10 - Z13.31) Learning About Depression Screening material was published 1. Depression discuss and educated on medication options Discuss and educated on Auveilty 45/105 mg - 1 tab twice a day - copay card given Zoloft 200 mg daily total daily- (reported takes 100 mg twice a day)- PCP fills mammogram scheduled today 2. Anxiety 3. Insomnia Trazodone 100 mg at bedtime- educated on rx Lunesta 3 mg- PCP prescribed - reported has 10 pills a month takes every 3 days hx sleep study 2023 see warp knitter helper Patient educated on all medications including potential benefits, side effects, risks. Educated on proper dosing schedule and importance of compliance educated on all medications, benefits, side effects and risk, and educated on depression, anxiety, and ADHD, mood d/o and educated on compliance of medications, metabolic and movement d/o education appointment's, continue therapy discussion with patient about course of treatment and patient instructions. education on serotonin syndrome Discussed and educated pt regarding benzodiazepines are generally not intended for prolonged use and that use can cause tolerance, dependence, depression, and associated memory issues including dementias (this list is not exhaustive). Benzodiazepine use is generally not recommended concurrently with pain medications and/or other controlled substances educated on all medications, benefits, side effects and risk, and educated on depression, anxiety, and ADHD, mood d/o and educated on compliance of medications, metabolic and movement d/o education appointment is, continue therapy discussion with patient about course of treatment and patient instructions. education on serotonin syndrome SSRI/SNRI side effects discussed including but not limited to, gastric upset, nausea, vomiting, diarrhea and/or constipation, weight changes, sexual side effects including loss of libido, increased suicidal thoughts/behavior s in children and young adults, and serotonin syndrome. Second generation antipsychotics (SGAs) have metabolic syndrome issues with weight gain, increase in prolactin, increased waist circumference, increased lipids, and increased glucose. Thus routine monitoring of weight, metabolic labs, etc. is indicated. A general rank ordering of antipsychotics that have the greatest to the least risk of metabolic effects is olanzapine, quetiapine, risperidone, ziprasidone, and aripiprazole. However, weight gain can occur with all of these drugs and considerable variability exists among patients receiving the same drug regarding the risk of metabolic effects. Anti-psychotic agents not only increase the risk of metabolic disorder, they also increase the risk of CVA, akathisia, and movement disorders including EPS or tardive dyskinesia (more common with first generation antipsychotics) and more. Medication Management and Follow-Up - Plan: - Schedule follow-up appointments every 1-3 months to monitor the patient's response to the medication regimen. - Reinforce the importance of avoiding recreational drug use due to potential neurotoxicity and interactions with prescribed medications. 10/24/2024 MDD (major depressive disorder), severe (ICD-10 - F32.2) 1. Depression discuss and educated on medication options Discuss and educated on Auveilty 45/105 mg - 1 tab twice a day - copay card given Zoloft 200 mg daily total daily- (reported takes 100 mg twice a day)- PCP fills mammogram scheduled today 2. Anxiety 3. Insomnia Trazodone 100 mg at bedtime- educated on rx Lunesta 3 mg- PCP prescribed - reported has 10 pills a month takes every 3 days hx sleep study 2023 see warp knitter helper Patient educated on all medications including potential benefits, side effects, risks. Educated on proper dosing schedule and importance of compliance educated on all medications, benefits, side effects and risk, and educated on depression, anxiety, and ADHD, mood d/o and educated on compliance of medications, metabolic and movement d/o education appointment's, continue therapy discussion with patient about course of treatment and patient instructions. education on serotonin syndrome Discussed and educated pt regarding benzodiazepines are generally not intended for prolonged use and that use can cause tolerance, dependence, depression, and associated memory issues including dementias (this list is not exhaustive). Benzodiazepine use is generally not recommended concurrently with pain medications and/or other controlled substances educated on all medications, benefits, side effects and risk, and educated on depression, anxiety, and ADHD, mood d/o and educated on compliance of medications, metabolic and movement d/o education appointment is, continue therapy discussion with patient about course of treatment and patient instructions. education on serotonin syndrome SSRI/SNRI side effects discussed including but not limited to, gastric upset, nausea, vomiting, diarrhea and/or constipation, weight changes, sexual side effects including loss of libido, increased suicidal thoughts/behavior s in children and young adults, and serotonin syndrome. Second generation antipsychotics (SGAs) have metabolic syndrome issues with weight gain, increase in prolactin, increased waist circumference, increased lipids, and increased glucose. Thus routine monitoring of weight, metabolic labs, etc. is indicated. A general rank ordering of antipsychotics that have the greatest to the least risk of metabolic effects is olanzapine, quetiapine, risperidone, ziprasidone, and aripiprazole. However, weight gain can occur with all of these drugs and considerable variability exists among patients receiving the same drug regarding the risk of metabolic effects. Anti-psychotic agents not only increase the risk of metabolic disorder, they also increase the risk of CVA, akathisia, and movement disorders including EPS or tardive dyskinesia (more common with first generation antipsychotics) and more. Medication Management and Follow-Up - Plan: - Schedule follow-up appointments every 1-3 months to monitor the patient's response to the medication regimen. - Reinforce the importance of avoiding recreational drug use due to potential neurotoxicity and interactions with prescribed medications. 10/24/2024 Encounter for screening for cardiovascular disorders (ICD-10 - Z13.6) 1. Depression discuss and educated on medication options Discuss and educated on Auveilty 45/105 mg - 1 tab twice a day - copay card given Zoloft 200 mg daily total daily- (reported takes 100 mg twice a day)- PCP fills mammogram scheduled today 2. Anxiety 3. Insomnia Trazodone 100 mg at bedtime- educated on rx Lunesta 3 mg- PCP prescribed - reported has 10 pills a month takes every 3 days hx sleep study 2023 see warp knitter helper Patient educated on all medications including potential benefits, side effects, risks. Educated on proper dosing schedule and importance of compliance educated on all medications, benefits, side effects and risk, and educated on depression, anxiety, and ADHD, mood d/o and educated on compliance of medications, metabolic and movement d/o education appointment's, continue therapy discussion with patient about course of treatment and patient instructions. education on serotonin syndrome Discussed and educated pt regarding benzodiazepines are generally not intended for prolonged use and that use can cause tolerance, dependence, depression, and associated memory issues including dementias (this list is not exhaustive). Benzodiazepine use is generally not recommended concurrently with pain medications and/or other controlled substances educated on all medications, benefits, side effects and risk, and educated on depression, anxiety, and ADHD, mood d/o and educated on compliance of medications, metabolic and movement d/o education appointment is, continue therapy discussion with patient about course of treatment and patient instructions. education on serotonin syndrome SSRI/SNRI side effects discussed including but not limited to, gastric upset, nausea, vomiting, diarrhea and/or constipation, weight changes, sexual side effects including loss of libido, increased suicidal thoughts/behavior s in children and young adults, and serotonin syndrome. Second generation antipsychotics (SGAs) have metabolic syndrome issues with weight gain, increase in prolactin, increased waist circumference, increased lipids, and increased glucose. Thus routine monitoring of weight, metabolic labs, etc. is indicated. A general rank ordering of antipsychotics that have the greatest to the least risk of metabolic effects is olanzapine, quetiapine, risperidone, ziprasidone, and aripiprazole. However, weight gain can occur with all of these drugs and considerable variability exists among patients receiving the same drug regarding the risk of metabolic effects. Anti-psychotic agents not only increase the risk of metabolic disorder, they also increase the risk of CVA, akathisia, and movement disorders including EPS or tardive dyskinesia (more common with first generation antipsychotics) and more. Medication Management and Follow-Up - Plan: - Schedule follow-up appointments every 1-3 months to monitor the patient's response to the medication regimen. - Reinforce the importance of avoiding recreational drug use due to potential neurotoxicity and interactions with prescribed medications. 10/24/2024 Primary insomnia (ICD-10 - F51.01) Insomnia: Care Instructions material was published, Learning About Sleeping Well material was published, Insomnia: Care Instructions material was published, Learning About Sleeping Well material was published, Insomnia: Care Instructions material was published, Learning About Sleeping Well material was published 1. Depression discuss and educated on medication options Discuss and educated on Auveilty 45/105 mg - 1 tab twice a day - copay card given Zoloft 200 mg daily total daily- (reported takes 100 mg twice a day)- PCP fills mammogram scheduled today 2. Anxiety 3. Insomnia Trazodone 100 mg at bedtime- educated on rx Lunesta 3 mg- PCP prescribed - reported has 10 pills a month takes every 3 days hx sleep study 2023 see warp knitter helper Patient educated on all medications including potential benefits, side effects, risks. Educated on proper dosing schedule and importance of compliance educated on all medications, benefits, side effects and risk, and educated on depression, anxiety, and ADHD, mood d/o and educated on compliance of medications, metabolic and movement d/o education appointment's, continue therapy discussion with patient about course of treatment and patient instructions. education on serotonin syndrome Discussed and educated pt regarding benzodiazepines are generally not intended for prolonged use and that use can cause tolerance, dependence, depression, and associated memory issues including dementias (this list is not exhaustive). Benzodiazepine use is generally not recommended concurrently with pain medications and/or other controlled substances educated on all medications, benefits, side effects and risk, and educated on depression, anxiety, and ADHD, mood d/o and educated on compliance of medications, metabolic and movement d/o education appointment is, continue therapy discussion with patient about course of treatment and patient instructions. education on serotonin syndrome SSRI/SNRI side effects discussed including but not limited to, gastric upset, nausea, vomiting, diarrhea and/or constipation, weight changes, sexual side effects including loss of libido, increased suicidal thoughts/behavior s in children and young adults, and serotonin syndrome. Second generation antipsychotics (SGAs) have metabolic syndrome issues with weight gain, increase in prolactin, increased waist circumference, increased lipids, and increased glucose. Thus routine monitoring of weight, metabolic labs, etc. is indicated. A general rank ordering of antipsychotics that have the greatest to the least risk of metabolic effects is olanzapine, quetiapine, risperidone, ziprasidone, and aripiprazole. However, weight gain can occur with all of these drugs and considerable variability exists among patients receiving the same drug regarding the risk of metabolic effects. Anti-psychotic agents not only increase the risk of metabolic disorder, they also increase the risk of CVA, akathisia, and movement disorders including EPS or tardive dyskinesia (more common with first generation antipsychotics) and more. Medication Management and Follow-Up - Plan: - Schedule follow-up appointments every 1-3 months to monitor the patient's response to the medication regimen. - Reinforce the importance of avoiding recreational drug use due to potential neurotoxicity and interactions with prescribed medications. 10/24/2024 DOLORES (generalized anxiety disorder) (ICD-10 - F41.1) Learning About Generalized Anxiety Disorder material was published, Generalized Anxiety Disorder: Care Instructions material was published, Learning About Anxiety Disorders material was published, Learning About Generalized Anxiety Disorder material was published, Generalized Anxiety Disorder: Care Instructions material was published, Learning About Generalized Anxiety Disorder material was published, Learning About Anxiety Disorders material was published, Life After Combat: Coping with an Anxiety Disorder material was published, Managing a Health Condition and Your Anxiety About It material was published 1. Depression discuss and educated on medication options Discuss and educated on Auveilty 45/105 mg - 1 tab twice a day - copay card given Zoloft 200 mg daily total daily- (reported takes 100 mg twice a day)- PCP fills mammogram scheduled today 2. Anxiety 3. Insomnia Trazodone 100 mg at bedtime- educated on rx Lunesta 3 mg- PCP prescribed - reported has 10 pills a month takes every 3 days hx sleep study 2023 see warp knitter helper Patient educated on all medications including potential benefits, side effects, risks. Educated on proper dosing schedule and importance of compliance educated on all medications, benefits, side effects and risk, and educated on depression, anxiety, and ADHD, mood d/o and educated on compliance of medications, metabolic and movement d/o education appointment's, continue therapy discussion with patient about course of treatment and patient instructions. education on serotonin syndrome Discussed and educated pt regarding benzodiazepines are generally not intended for prolonged use and that use can cause tolerance, dependence, depression, and associated memory issues including dementias (this list is not exhaustive). Benzodiazepine use is generally not recommended concurrently with pain medications and/or other controlled substances educated on all medications, benefits, side effects and risk, and educated on depression, anxiety, and ADHD, mood d/o and educated on compliance of medications, metabolic and movement d/o education appointment is, continue therapy discussion with patient about course of treatment and patient instructions. education on serotonin syndrome SSRI/SNRI side effects discussed including but not limited to, gastric upset, nausea, vomiting, diarrhea and/or constipation, weight changes, sexual side effects including loss of libido, increased suicidal thoughts/behavior s in children and young adults, and serotonin syndrome. Second generation antipsychotics (SGAs) have metabolic syndrome issues with weight gain, increase in prolactin, increased waist circumference, increased lipids, and increased glucose. Thus routine monitoring of weight, metabolic labs, etc. is indicated. A general rank ordering of antipsychotics that have the greatest to the least risk of metabolic effects is olanzapine, quetiapine, risperidone, ziprasidone, and aripiprazole. However, weight gain can occur with all of these drugs and considerable variability exists among patients receiving the same drug regarding the risk of metabolic effects. Anti-psychotic agents not only increase the risk of metabolic disorder, they also increase the risk of CVA, akathisia, and movement disorders including EPS or tardive dyskinesia (more common with first generation antipsychotics) and more. Medication Management and Follow-Up - Plan: - Schedule follow-up appointments every 1-3 months to monitor the patient's response to the medication regimen. - Reinforce the importance of avoiding recreational drug use due to potential neurotoxicity and interactions with prescribed medications. 10/24/2024 Other Bupropion mater ial was published, Dextromethorphan material was published, Trazodone material was published Depression Treatment: Care Instructions material was published, Learning About Depression material was published, Deciding About Stopping Your Antidepressant material was published, Preventing Depression From Coming Back: Care Instructions material was published, Learning About Depression Screening material was published, Learning About Depression material was published, Depression Treatment: Care Instructions material was published, Deciding About Stopping Your Antidepressant material was published, Learning About How to Get Help During a Mental Health Crisis material was published, Learning About Depression Screening material was published, Depression Treatment: Care Instructions material was published, Learning About Depression material was published, Learning About Mood Disorders material was published, Recovering From Depression: Care Instructions material was published 1. Depression discuss and educated on medication options Discuss and educated on Auveilty 45/105 mg - 1 tab twice a day - copay card given Zoloft 200 mg daily total daily- (reported takes 100 mg twice a day)- PCP fills mammogram scheduled today 2. Anxiety 3. Insomnia Trazodone 100 mg at bedtime- educated on rx Lunesta 3 mg- PCP prescribed - reported has 10 pills a month takes every 3 days hx sleep study 2023 see warp knitter helper Patient educated on all medications including potential benefits, side effects, risks. Educated on proper dosing schedule and importance of compliance educated on all medications, benefits, side effects and risk, and educated on depression, anxiety, and ADHD, mood d/o and educated on compliance of medications, metabolic and movement d/o education appointment's, continue therapy discussion with patient about course of treatment and patient instructions. education on serotonin syndrome Discussed and educated pt regarding benzodiazepines are generally not intended for prolonged use and that use can cause tolerance, dependence, depression, and associated memory issues including dementias (this list is not exhaustive). Benzodiazepine use is generally not recommended concurrently with pain medications and/or other controlled substances educated on all medications, benefits, side effects and risk, and educated on depression, anxiety, and ADHD, mood d/o and educated on compliance of medications, metabolic and movement d/o education appointment is, continue therapy discussion with patient about course of treatment and patient instructions. education on serotonin syndrome SSRI/SNRI side effects discussed including but not limited to, gastric upset, nausea, vomiting, diarrhea and/or constipation, weight changes, sexual side effects including loss of libido, increased suicidal thoughts/behavior s in children and young adults, and serotonin syndrome. Second generation antipsychotics (SGAs) have metabolic syndrome issues with weight gain, increase in prolactin, increased waist circumference, increased lipids, and increased glucose. Thus routine monitoring of weight, metabolic labs, etc. is indicated. A general rank ordering of antipsychotics that have the greatest to the least risk of metabolic effects is olanzapine, quetiapine, risperidone, ziprasidone, and aripiprazole. However, weight gain can occur with all of these drugs and considerable variability exists among patients receiving the same drug regarding the risk of metabolic effects. Anti-psychotic agents not only increase the risk of metabolic disorder, they also increase the risk of CVA, akathisia, and movement disorders including EPS or tardive dyskinesia (more common with first generation antipsychotics) and more. Medication Management and Follow-Up - Plan: - Schedule follow-up appointments every 1-3 months to monitor the patient's response to the medication regimen. - Reinforce the importance of avoiding recreational drug use due to potential neurotoxicity and interactions with prescribed medications. Plan Of Treatment Medication Medication Name Sig Start Date Stop Date Notes traZODone HCl 100 MG Tablet 1 tablet at bedtime Orally bedtime; Duration: 90 days 10/24/2024 Auvelity 45-105 MG Tablet Extended Release 1 tablet Orally twice a day; Duration: 90 days Treatment Notes Assessment Notes Encounter for screening for depression L earning About Depression Screening material was published Primary insomnia Insomnia: Care Instr uctions material was published, Learning About Sleeping Well material was published, Insomnia: Care Instructions material was published, Learning About Sleeping Well material was published, Insomnia: Care Instructions material was published, Learning About Sleeping Well material was published DOLORES (generalized anxiety disorder) Learn ing About Generalized Anxiety Disorder material was published, Generalized Anxiety Disorder: Care Instructions material was published, Learning About Anxiety Disorders material was published, Learning About Generalized Anxiety Disorder material was published, Generalized Anxiety Disorder: Care Instructions material was published, Learning About Generalized Anxiety Disorder material was published, Learning About Anxiety Disorders material was published, Life After Combat: Coping with an Anxiety Disorder material was published, Managing a Health Condition and Your Anxiety About It material was published Other Bupropion material w as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
--- OUTSIDE RECORDS SUMMARY | 2024-10-24 12:39 | XMS_ITS | Clinical Summary ---
Author Organization [facility] Address [address] [place] [address] Phone Care Team Providers Care Bowling Alley Manager Name Role Phone Unavailable Primary Care Provider [...] Encounters Date Type Department Care Team Description 10/19/2024 External Device Data STL ABSTRACTION Provider, Abstract 10/12/2024 External Device Data [facility] ABSTRACTION Provider, Abstract [...] Comments Blood Pressure 134/82 03/01/2024 1:00 PM DIRECTOR OF COMM[employer]ITY [employer]UCATION Pulse 97 03/01/2024 1:00 PM [employer] COMM[employer]ITY [employer]UCATION Temperature 36.7 C (98.1 F) 03/01/2024 1:00 PM [employer] Respiratory Rate 20 03/01/2024 1:00 PM [employer] COMM[employer]UC[employer] Oxygen Saturation 95% 03/01/2024 1:00 PM [employer] COMM[employer]ITY [employer]UC[employer] Inhaled Oxygen Concentration - - Weight 156 kg (343 lb 14.4 oz) 02/28/2024 5:00 A M [employer] Height 160 cm (5' 3) 02/27/2024 10:28 AM [employer] COMM[employer] Body Mass Index 60.92 02/27/2024 10:28 AM [employer] COMM[employer]ITY EDUCATION Plan of Treatment Health Maintenance Due Date Last Done Comments DTAP/TDAP/TD VACCINES (1 - Tdap) 2000 HEPATITIS B VACCINES (1 of 3 - 19+ 3-dose series) 06/16 HPV/Cotest (21-29) 2002 HPV VACCINES (1 - 3-dose SCDM series) 2008 CERVICAL CANCER SCREENING 07/03/2011 HPV/Cotest (30-65) 07/03/2011 PAP SMEAR 07/03/2011 BREAST CANCER SCREENING 2021 INFLUENZA VACCINE (#1) 2024 Pre-Diabetes and Diabetes Screening 02/26/202702/26 Procedures Procedure Name Priority Date/Time Associated Diagnosis Comments HEMOGLOBIN A1C Routine 02/27/2024 9:07 AM [employer]UC[employer] from Last 3 Months or Most Recently Relevant to Health Maintenance Results * HEMOGLOBIN A1C (02/27/2024 9:07 AM [employer] COMM[employer]ITY [employer]UC[employer]) HEMOGLOBIN A1C 5.4 <5.7 % 02/27/2024 11:09 AM [facility] [employer] [facility] EST. AVG GLUCOSE, A1C 108 mg/dL 02/27/2024 11:09 AM [facility] [employer] [facility] Blood Venipuncture / Unknown 02/27/2024 9:07 AM [employer] COMM[employer]UCATION 02/27/2024 9:16 AM [employer] COMMUNITY EDUCATION Narrative [facility] - 02/27/2024 11:09 AM [employer] COMMUNITY EDUCATION HGB A1C INTERPRETATION NORMAL: <5.7% PRE-DIABETES: 5.7 - 6.4% DIABETES: 6.5% OR GREATER Toni Hawkins MD CHEMISTRY ORDERABLES Final Resu lt [facility] CLIA# [id number] [address] [place] [id number] from Last 3 Months or Most Recently Relevant to Health Maintenance Insurance RX [employer] Member Subscriber Plan / Payer (Ef fective 2024-Present) Name:Bell Rios Relation to Subscriber:Self Name:Bell Rios Subscriber ID:Not on file Payer ID:Not on file Group ID:[id number] Type:RX Commercial Address: [place] Advance Directives For more information, please contact: [phone] * Full Code (Latest Code Status on File) Date Activated Date Inactivated Comments 02/27/2024 8:37 AM 03/01/2024 6:06 PM
--- OUTSIDE RECORDS SUMMARY | 2024-10-24 12:39 | XMS_ITS | Patient Health Record ---
Author Organization [facility] Address [address] [place] [address] Care Team Providers [employer] Advisor Name Role Phone Donny Escobedo DO Primary Care Provider Unavail able Karlie Cherry Unavailable [phone] Jenny Chavez Unavailable [phone] Allergies Allergen (clinical drug ingredient) Drug/Non Drug Allergy documented on EMR Reaction Allergy Type Onset Date Status Srikanth mcdaniels Drug Allergy Active Results Component Value Reference Range Notes UDT Reviewed date:08/15/2024 10:30:06 AM Interpretation: Performing Lab: Notes/Report: THC NEG 0 - 50 ng/ml Cocaine NEG 0 - 300 ng/ml Amphetamine NEG 0 - 1000 ng/ml Buprenorphine (BUP) NEG 0 - 10 ng/ml Secobarbital (Bar) NEG 0 - 300 ng/ml Oxazepam (BZO) NEG 0 - 300 ng/ml 2-arfxppjvju-2,6-vgimrubb-6,3-diphenylpyrrolidine (WAYNE P) NEG 0 - 300 ng/ml Methamphetamine (MET) NEG 0 - 1000 ng/ml Methylenedioxymethamphetamine (MDMA) NEG 0 - 500 ng/ml Morphine (MOP 300/[id number]) NEG 0 - 300 ng/ml Methadone (MTD) NEG 0 - 300 ng/ml Phencyclidine (PCP) NEG 0 - 25 ng/ml Nortriptyline (TCA) NEG 0 - 1000 ng/ml Oxycodone NEG 0 - 300 ng/ml x NEG 0 - 300 ng/ml Reason For Referral No Information Medications Medication SIG (Take, Route, Frequency, Duration) Notes Start Date End Date Status Montelukast Sodium 10 MG Tablet TAKE 1 TABLET BY MOUTH NIGHTLY AT BEDTIME Oral; Duration: 30 Days J4540,Unavailab le Active Eszopiclone 3 MG Tablet TAKE 1 TABLET BY MOUTH EVERY DAY AT BEDTIME Oral; Duration: 10 Days G4700,Unavailab le Active Sertraline HCl 100 MG Tablet TAKE 2 [...] 4 HOURS Inhalation; Duration: 34 Days Active Auvelity 45-105 MG Tablet Extended Release 1 tablet Orally twice a day; Duration: 90 days Active Social History Tobacco Use: Social History Observation Description Date Details (start date - stop date) Former Smoker NA - NA Sex Assigned At : Social History Observation Description Sex Assigned At Female Social History Miscellaneous: Social Info Question Answer Notes Safety issues: Are there any firearms in the house? No Social History Social Info Question Answer Notes Household: Marital Status: Number of Adults in household: 2 Number of Children in Household: 2 Level of Education: Not Answered Drug/Alcohol: Social Info Question Answer Notes Drugs Have you used drugs other than those for medical reasons in the past 12 months? No AUDIT-C (Standard) Points 3 Did you have a drink contain ing alcohol in the past year? Yes How often did you have six or more drinks on one occasion in the past year? Less than monthly (1 point) How many drinks did you have on a typical day when you were drinking in the past year? 3 or 4 drinks (1 point) How often did you have a drink containing alcohol in the past year? 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 Den ies Do you drink alcohol? Yes, not v remy often Problems Problem Type SNOMED Code ICD Code Onset Dates Problem Status W/U Status Risk Notes Problem Primary insomnia (8389487) Primary insomnia (F51.01) Active confirmed Problem Screening for cardiovascular system disease (973322229) Encounter for screening for cardiovascular disorders (Z13.6) Active confirmed Problem Depression Screening (495502811) Encounter for screening for depression (Z13.31) Active confirmed Problem Generalized anxiety disorder (12974309) DOLORES (generalized anxiety disorder) (F41.1) Active confirmed Problem Severe major depression, single episode, without psychotic features (22674206) MDD (major depressive disorder), severe (F32.2) Active confirmed Vital Signs Heart Rate 85 /min 08/29/2024 Respiratory Rate 16 /min 09/26/2024 Height-cm 160.02 cm 09/26/2024 Blood pressure diastolic 82 mm Hg 09/26/2024 Weight-kg 167.83 kg 09/26/2024 Height 63 in 09/26/2024 Blood pressure systolic 125 mm Hg 09/26/2024 Weight 370 lbs 09/26/2024 BMI 65.54 kg/m2 09/26/2024 Encounters Encounter Location Date Provider Diagnosis [facility] [place] [id number] [facility] [address] [place] [address] 10/24/2024 Jenny Chavez MDD (major depressiv e disorder), severe F32.2 and DOLORES (generalized anxiety disorder) F41.1 [employer] [place] [address] [place] [address] 08/15/2024 Karlie Thery Encounter for screen ing for depression Z13.31 ; MDD (major depressive disorder), severe F32.2 ; Encounter for screening for cardiovascular disorders Z13.6 ; Primary insomnia F51.01 and DOLORES (generalized anxiety disorder) F41.1 [facility] [address] [place] [address] 08/29/2024 Karlie Thery Encounter for screen ing for depression Z13.31 ; MDD (major depressive disorder), severe F32.2 ; Encounter for screening for cardiovascular disorders Z13.6 ; Primary insomnia F51.01 and DOLORES (generalized anxiety disorder) F41.1 [facility] [address] [place] [address] 09/26/2024 Karlie Thery Encounter for screen ing for depression Z13.31 ; MDD (major depressive disorder), severe F32.2 ; Encounter for screening for cardiovascular disorders Z13.6 ; Primary insomnia F51.01 and DOLORES (generalized anxiety disorder) F41.1 [facility] [address] [place] [address] 10/24/2024 Karlie Thery Encounter for screen ing for depression Z13.31 ; MDD (major depressive disorder), severe F32.2 ; Encounter for screening for cardiovascular disorders Z13.6 ; Primary insomnia F51.01 and DOLORES (generalized anxiety disorder) F41.1 [facility] [address] [place] [address] 09/12/2024 Karlie Thery [facility] [address] [place] [address] 10/13/2024 Karlie Therhelena Primary insomnia F51 .01 Assessments Encounter Date Diagnosis (ICD Code) Assessment Notes Treatment Notes Treatment Clinical Notes Section Notes 08/15/2024 Encounter for screening for depression (ICD-10 - Z13.31) 1. Depression discuss and educated on medication options add Seroquel 50 mg at bedtime discuss may not need Lunesta with Seroquel Zoloft 200 mg daily total daily- (reported takes 100 mg twice a day)- PCP fills Wellbutrin XL 300 mg daily- PCP fills 2. Anxiety 3. 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 08/15/2024 MDD (major depressive disorder), severe (ICD-10 - F32.2) Depression Treatment: Care Instructions material was published, Learning About Depression material was published, Deciding About Stopping Your Antidepressant material was published, Preventing Depression From Coming Back: Care Instructions material was published, Learning About Depression Screening material was published 1. Depression discuss and educated on medication options add Seroquel 50 mg at bedtime discuss may not need Lunesta with Seroquel Zoloft 200 mg daily total daily- (reported takes 100 mg twice a day)- PCP fills Wellbutrin XL 300 mg daily- PCP fills 2. Anxiety 3. 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 08/29/2024 Encounter for screening for depression (ICD-10 - Z13.31) 1. Depression discuss and educated on medication options Pateint has not seen a difference with depression or sleep on Seroquel 50 mg at bedtime- she also has gained 10 pounds- will d/c Seroquel Discuss and educated on adding Auveilty 45/105 mg - 1 tab for 3 days and then increase to 1 tab twice a day - samples and copay card given Zoloft 200 mg daily total daily- (reported takes 100 mg twice a day)- PCP fills decrease Wellbutrin XL 150 mg daily- for 3 days then stop 2. Anxiety 3. 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 09/26/2024 Encounter for screening for depression (ICD-10 - Z13.31) Learning About Depression Screening material was published 1. Depression discuss and educated on medication options Discuss and educated on Auveilty 45/105 mg - 1 tab twice a day - copay card given Zoloft 200 mg daily total daily- (reported takes 100 mg twice a day)- PCP fills decrease Wellbutrin XL 150 mg daily- for 3 days then stop - educated patient to stop Wellbutrin after this script 2. Anxiety 3. 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 09/26/2024 MDD (major depressive disorder), severe (ICD-10 - F32.2) Depression Treatment: Care Instructions material was published, [...] 100 mg twice a day)- PCP fills decrease Wellbutrin XL 150 mg daily- for 3 days then stop - educated patient to stop Wellbutrin after this script 2. Anxiety 3. 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 Depression discuss and educated on medication options Pateint has not seen a difference with depression or sleep on Seroquel 50 mg at bedtime- she also has gained 10 pounds- will d/c Seroquel Discuss and educated on adding Auveilty 45/105 mg - 1 tab for 3 days and then increase to 1 tab twice a day - samples and copay card given Zoloft 200 mg daily total daily- (reported takes 100 mg twice a day)- PCP fills decrease Wellbutrin XL 150 mg daily- for 3 days then stop 2. Anxiety 3. 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 08/15/2024 Encounter for screening for cardiovascular disorders (ICD-10 - Z13.6) 1. Depression discuss and educated on medication options add Seroquel 50 mg at bedtime discuss may not need Lunesta with Seroquel Zoloft 200 mg daily total daily- (reported takes 100 mg twice a day)- PCP fills Wellbutrin XL 300 mg daily- PCP fills 2. Anxiety 3. 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 08/15/2024 Primary insomnia (ICD-10 - F51.01) Insomnia: Care Instructions material was published, Learning About Sleeping Well material was published 1. Depression discuss and educated on medication options add Seroquel 50 mg at bedtime discuss may not need Lunesta with Seroquel Zoloft 200 mg daily total daily- (reported takes 100 mg twice a day)- PCP fills Wellbutrin XL 300 mg daily- PCP fills 2. Anxiety 3. 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 08/29/2024 Encounter for screening for cardiovascular disorders (ICD-10 - Z13.6) 1. Depression discuss and educated on medication options Pateint has not seen a difference with depression or sleep on Seroquel 50 mg at bedtime- she also has gained 10 pounds- will d/c Seroquel Discuss and educated on adding Auveilty 45/105 mg - 1 tab for 3 days and then increase to 1 tab twice a day - samples and copay card given Zoloft 200 mg daily total daily- (reported takes 100 mg twice a day)- PCP fills decrease Wellbutrin XL 150 mg daily- for 3 days then stop 2. Anxiety 3. 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 09/26/2024 Encounter for screening for cardiovascular disorders (ICD-10 - Z13.6) 1. Depression discuss and educated on medication options Discuss and educated on Auveilty 45/105 mg - 1 tab twice a day - copay card given Zoloft 200 mg daily total daily- (reported takes 100 mg twice a day)- PCP fills decrease Wellbutrin XL 150 mg daily- for 3 days then stop - educated patient to stop Wellbutrin after this script 2. Anxiety 3. 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 09/26/2024 Primary insomnia (ICD-10 - F51.01) Insomnia: Care [...] 100 mg twice a day)- PCP fills decrease Wellbutrin XL 150 mg daily- for 3 days then stop - educated patient to stop Wellbutrin after this script 2. Anxiety 3. 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 08/15/2024 DOLORES (generalized anxiety disorder) (ICD-10 - F41.1) Learning About Generalized Anxiety Disorder material was published, Generalized Anxiety Disorder: Care Instructions material was published, Learning About Anxiety Disorders material was published 1. Depression discuss and educated on medication options add Seroquel 50 mg at bedtime discuss may not need Lunesta with Seroquel Zoloft 200 mg daily total daily- (reported takes 100 mg twice a day)- PCP fills Wellbutrin XL 300 mg daily- PCP fills 2. Anxiety 3. 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 08/29/2024 Primary insomnia (ICD-10 - F51.01) Insomnia: Care Instructions material was published, Learning About Sleeping Well material was published, Insomnia: Care Instructions material was published, Learning About Sleeping Well material was published 1. Depression discuss and educated on medication options Pateint has not seen a difference with depression or sleep on Seroquel 50 mg at bedtime- she also has gained 10 pounds- will d/c Seroquel Discuss and educated on adding Auveilty 45/105 mg - 1 tab for 3 days and then increase to 1 tab twice a day - samples and copay card given Zoloft 200 mg daily total daily- (reported takes 100 mg twice a day)- PCP fills decrease Wellbutrin XL 150 mg daily- for 3 days then stop 2. Anxiety 3. 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 08/29/2024 DOLORES (generalized anxiety disorder) (ICD-10 - F41.1) Learning About Generalized Anxiety Disorder material was published, Generalized Anxiety Disorder: Care Instructions material was published, Learning About Anxiety Disorders material was published, Learning About Generalized Anxiety Disorder material was published 1. Depression discuss and educated on medication options Pat[employer]iat has not seen a difference with depression or sleep on Seroquel 50 mg at bedtime- she also has gained 10 pounds- will d/c Seroquel Discuss and educated on adding Auveilty 45/105 mg - 1 tab for 3 days and then increase to 1 tab twice a day - samples and copay card given Zoloft 200 mg daily total daily- (reported takes 100 mg twice a day)- PCP fills decrease Wellbutrin XL 150 mg daily- for 3 days then stop 2. Anxiety 3. 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 09/26/2024 DOLORES (generalized anxiety disorder) (ICD-10 - F41.1) [...] 100 mg twice a day)- PCP fills decrease Wellbutrin XL 150 mg daily- for 3 days then stop - educated patient to stop Wellbutrin after this script 2. Anxiety 3. 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 08/15/2024 Other Learning About Depression Screening material was printed, Quetiapine material was published 1. Depression discuss and educated on medication options add Seroquel 50 mg at bedtime discuss may not need Lunesta with Seroquel Zoloft 200 mg daily total daily- (reported takes 100 mg twice a day)- PCP fills Wellbutrin XL 300 mg daily- PCP fills 2. Anxiety 3. 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 08/29/2024 Other Bupropion mater ial was published, Dextromethorphan material was published, Trazodone material was published 1. Depression discuss and educated on medication options Pateint has not seen a difference with depression or sleep on Seroquel 50 mg at bedtime- she also has gained 10 pounds- will d/c Seroquel Discuss and educated on adding Auveilty 45/105 mg - 1 tab for 3 days and then increase to 1 tab twice a day - samples and copay card given Zoloft 200 mg daily total daily- (reported takes 100 mg twice a day)- PCP fills decrease Wellbutrin XL 150 mg daily- for 3 days then stop 2. Anxiety 3. 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 09/26/2024 Other Bupropion mater ial was published, Dextromethorphan material was published, Trazodone material was published 1. Depression discuss and educated on medication options Discuss and educated on Auveilty 45/105 mg - 1 tab twice a day - copay card given Zoloft 200 mg daily total daily- (reported takes 100 mg twice a day)- PCP fills decrease Wellbutrin XL 150 mg daily- for 3 days then stop - educated patient to stop Wellbutrin after this script 2. Anxiety 3. 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 Plan Of Treatment Next Appt Details Provider Name:Jenny Chavez, 11/21/2024 11:00:00 AM, [address] [place] [address], [id number], Provider Name:Jenny Chavez, 12/12/2024 11:00:00 AM, [address], [address], [place], [address], Provider Name:Jenny Chavez, 01/02/2025 11:00:00 AM, [address], [address], Provider Name:Jenny Chavez, 01/16/2025 10:00:00 AM, [address], [address], Provider Name:Karlie Cherry , 01/16/2025 11:30:00 AM, [address], [address], Insurance Providers Payer Name Payer Address Payer Phone Subscriber Number Group Number Insured Name Patient Relationship to Insured Coverage Start Date Coverage End Date r [address] [address] [place] [address] [phone] [id number] Bell Rios Self - patient is the insured [facility] [address] [address] [place] [address] [id number] Bell Rios Self - patient is the insured Medical (General) History Medical History History ICD Code abdominal aortic aneurysm: No atrial fibrillation: No chronic fatigue syndrome: No essential tremor: No hyperlipidemia: No hypertension: No Parkinson's disease: No restless leg syndrome: No stroke: No subdural hematoma: No type 1 diabetes mellitus: No type 2 diabetes mellitus: No vitamin B12 deficiency: No vitamin D deficiency: Yes Surgical History Surgery Date(Month/Year) appendectomy section laparoscopic hysterectomy full hysterectomy leap procedure Hospitalization History Reason Date(Month/Year) leap procedure full hysterectomy laparoscopic hysterectomy appendectomy
--- OUTSIDE RECORDS SUMMARY | 2024-10-24 12:39 | XMS_ITS | Clinical Summary ---
Author Organization [facility] Address [facility] [place] [address] Care Team Providers Care Chief Wellness Officer Name Role Phone Donny Escobedo Primary Care Provider [phone] Medications sertraline (ZOLOFT) 100 MG tablet Take [...] Encounters Date Type Department Care Team Description 10/20/2024 7:11 PM CDT - 10/20/2024 11:59 PM CDT Hospital Encounter [facility] [address] [place] [address] Rohan Ellison MD Discharge Disposition: Home or Self Care (Routine Discharge) 10/20/2024 Travel 08/12/2024 Telephone [facility] [address] [place] [phone] Rohan Ellison MD Returned Call 08/11/2024 Orders Only [facility] [address] [place] [address] Rohan Ellison MD from Last [...] PM CDT 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 Gender Identity Not on file Sexual Orientation [...] 1980 Annual Physical 1984 Hepatitis C 07/03/1999 Hepatitis B Vaccines (1 of 3 - [...] Screening with HPV 07/03/2011 Mammogram Screening 2021 PHQ-2 (Physician [place]) 02/17/2024 COVID-19 Vaccine (1 - 2023-2 5 season) 2024 DTaP, Tdap and Td Vaccines ( 2 - Td or Tdap) 09/28/2034 09/28/2024 Meningococcal B Vaccine Aged Out No l onger eligible based on patient's age to complete this topic Meningococcal Vaccine Aged Out No jonathan rod eligible based on patient's age to complete this topic RSV Immunizations Under 20 Months Aged Out No longer eligible based on patient's age to complete this topic Insurance [facility] Care Teams Chief Wellness Officer Relationship Specialty Start Date End Date Donny Escobedo DO [address] [place] [address] PCP - General FAMILY PRACTICE 06/28/24
--- OUTSIDE RECORDS SUMMARY | 2024-10-24 12:39 | XMS_ITS | Clinical Summary ---
Author Organization [facility] Address [address] [place] [address] Care Team Providers Care Worship Leader Name Role Phone Charbel Stacklyn Vicky [employer] DRILL OPERATOR-DIRECTOR TOXICOLOGY Primary Care Provider Source Comments [facility],non-owned Affiliates and Associated Physician Practices is amultiple site organization consisting of ambulatory clinics and hospital sitesin [place], [place], [place] and [place]. This disclosure is being madepursuant to the Care Everywhere program and may not contain all information available regarding this patient. Last updated 17.[facility] Allergies No known active allergies Medications * [...] on file Relation to Subscriber:Not on file Name:ROSLAINA SAGE Subscriber ID:Not on file (Home) Address: [address] [place], [place] [id number] Payer ID:Not on file Group ID:Not on file Type:Self Pay Address: [facility] * Guarantor: ROSALINA SAGE Account Type Relation to Patient Date of Phone Billing Address Personal/Family [address] [place] [address] SELF PAY NO INSURANCE Member Subscriber Plan / Payer (Ef fective for All Dates) Name:Rosalina Sage Member ID:Not on file Relation to Subscriber:Not on file Name:ROSALINA SAGE Subscriber ID:Not on file Address: [address] [place] [address] Payer ID:Not on file Group ID:Not on file Type:Self Pay Address: [facility] SELF PAY NO INSURANCE Member Subscriber Plan / Payer (Ef fective for All Dates) Name:Rosalina Sage Member ID:Not on file Relation to Subscriber:Not on file Name:ROSALINA SAGE Subscriber ID:Not on file Address: [address] [place], [place] [id number] Payer ID:Not on file Group ID:Not on file Type:Self Pay Address: [facility] SELF PAY NO INSURANCE Member Subscriber Plan / Payer (Ef fective for All Dates) Name:Rosalina Sage Vicky Member ID:Not on file Relation to Subscriber:Not on file Name:ROSALINA SAGE Subscriber ID:Not on file Address: [address] [place], [place] [id number] Payer ID:Not on file Group ID:Not on file Type:Self Pay Address: [facility] Care Teams Worship Leader Relationship Specialty Start Date End Date Columba Stack APRN-[facility]IA [address] [place] [address] PCP - General 07/19/21
== END 2024-10-24 12:35 | disposition home or self-care (01) ==
LOC: ANHFOHIMG 12:37
PROVIDERS: PCP Family Medicine; Visit Provider Nurse Practitioner Family
DX: R92.8 Other abnormal and inconclusive findings on diagnostic imaging of breast (principal); N63.10 Unspecified lump in the right breast, unspecified quadrant
CPT/HCPCS: 77062; 77066; G0279